=== PATIENT | male | born 1950 | race Caucasian/White ===

== ENCOUNTER 2022-07-03 21:11 | Inpatient (IN) ==
[2022-07-03] MEDS ORDERED: IOPAMIDOL 100 ML BOTTLE IV ONE (21:12)
--- NOTE | 2022-07-03 21:14 | Emergency Department Note ---
HPI General Chief complaint: Fever Stated complaint: Fever Time Seen by Provider: 07/03/22 21:13 Mode of arrival: ambulatory History of Present Illness HPI Narrative: Narrative: Patient is a 71-year-old male with a complex medical history who presents to the emergency department due to weakness, abdominal pain, fever, and burning with urination. Patient was seen earlier and found to have concern for urinary retention. He states that he since then he has been able to urinate although he is continued to have a weak stream. He states that since then he has developed a fever, some lightheadedness, lower abdominal pain without radiation, and burning with urination. He reports denies palliative or provocative factors for his abdominal pain. He denies any other concerns at this time. Patient's daughter states that she was concerned because he was breathing really fast. She denies any other concerns at this time. Related Data Home Medications Medication Instructions Recorded Confirmed cyclobenzaprine 5 mg tablet 5 mg PO QHS PRN Muscle Spasm 06/18/15 02/24/22 travoprost 0.004 % eye drops 1 drp ophthalmic (eye) QPM 06/18/15 02/24/22 aspirin 325 mg tablet 325 mg PO QDAY 06/25/15 02/24/22 pregabalin 150 mg capsule (Lyrica) 150 mg PO QHS 01/30/19 02/24/22 candesartan 16 mg tablet 16 mg PO QDAY 04/14/21 02/24/22 spironolactone 25 PO QDAY 07/04/22 Previous Rx's Medication Instructions Recorded albuterol sulfate 90 mcg/actuation 2 inh inhalation TID #1 ea 07/09/20 breath activated powder inhaler nirmatrelvir 300 mg (150 mg See Rx Instructions PO .COMPLEX 05/05/22 x2)-ritonavir 100 mg tablet,dose #30 tabs pack(EUA) (Paxlovid) levothyroxine 75 mcg tablet 75 mcg PO QDAY #90 tabs 06/11/22 tamsulosin 0.4 mg capsule (Flomax) 0.4 mg PO QDAY #30 caps 07/03/22 Allergies Allergy/AdvReac Type Severity Reaction Status Date / Time LAKESHA Inhibitors Allergy Unknown Cough Verified 07/03/22 21:14 amlodipine Allergy Unknown Swelling Verified 07/03/22 21:14 hydrocodone-acetaminophen Allergy Unknown Nausea Uncoded 02/24/22 11:23 Review of Systems ROS ROS Narrative: Narrative: Constitutional: Reports fever and weakness Eyes: Denies eye pain or vision change ENT ED: Denies throat pain, hearing loss or rhinorrhea Cardiovascular: Denies chest pain or edema Respiratory: Reports other (Fast breathing); Denies shortness of breath or cough Gastrointestinal: Reports nausea; Denies abdominal pain, vomiting, diarrhea, constipation, hematochezia or melena Genitourinary: Reports dysuria, frequency and hematuria; Denies incontinence Musculoskeletal: Denies back pain or myalgia Integumentary: Denies rash or lesions Neurological: Reports weakness (Generalized); Denies headache, numbness, confusion, abnormal gait or dizziness Endocrine: Denies fatigue or polyuria Hematological/Lymphatic: Denies easy bleeding or easy bruising PFS Narrative Patient History Narrative: Narrative: Medical/Surgical/Family History All Active Problems (Updated 07/04/22 @ 04:06 by Raudel Randall MD) Acute urinary retention (Acute) Sepsis (Acute) Acute UTI (Acute) Low back pain (Acute) Medicare annual wellness visit, subsequent (Acute) Cerumen impaction (Acute) Right hip pain (Acute) Diarrhea (Acute) Diarrhea (Acute) UTI (urinary tract infection) (Acute) Acute confusion (Acute) Hypertension, essential (Acute) Acute UTI (Acute) Need for hepatitis B screening test (Acute) Gastroesophageal reflux disease (Chronic) Hiatal hernia (Chronic) Pulmonary infiltrate (Chronic) COPD (chronic obstructive pulmonary disease) (Chronic) Hyperlipidemia (Chronic) Abnormal CT scan, bladder (Chronic) LVH (left ventricular hypertrophy) (Chronic) Lung nodules (Chronic) Elevated CK (Chronic) Obstructive Sleep Apnea-Hypopnea Syndrome (Chronic) Neck Pain (Chronic) History of esophagogastroduodenoscopy (Chronic 08/07/15) Weight loss (Chronic) Vitamin D deficiency (Chronic) Urethral stricture, traumatic (Chronic) Polycythemia (Chronic) Osteoarthritis (Chronic) Obstructive sleep apnea (Chronic) Low back pain (Chronic) Hypothyroidism (acquired) (Chronic) Hypertension, essential (Chronic) Headache (Chronic) Glaucoma (Chronic) Fatigue (Chronic) Elevated PSA (Chronic) Derangement of joint (Chronic) Degenerative disc disease (Chronic) Bradycardia (Chronic) BPH without obstruction/lower urinary tract symptoms (Chronic) Arrhythmia (Chronic) Allergic rhinitis (Chronic) Medical History Acute prostatitis Allergic rhinitis Arrhythmia over the summer 2011 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 Remote BPH without obstruction/lower urinary tract symptoms Bradycardia H/O COPD (chronic obstructive pulmonary disease) Degenerative disc disease Derangement of joint Diarrhea Diarrhea Elevated PSA H/O Fatigue Gastroesophageal reflux disease Glaucoma Headache Hiatal hernia Hypertension, essential Hypothyroidism (acquired) Low back pain Low back pain Medicare annual wellness visit, initial Medicare annual wellness visit, subsequent Nausea Obstructive sleep apnea Osteoarthritis Polycythemia Pulmonary infiltrate Urethral stricture, traumatic Vitamin D deficiency Weight loss 10 pounds Surgical History History of colonoscopy with polypectomy (06/16/17) History of esophagogastroduodenoscopy (08/07/15) Hx of appendectomy Hx of colonoscopy 04/08/07-diverticuli and hemorrhoids. 06/16/17-TA. Dr Agarwal Hx of esophagogastroduodenoscopy 03/30 dilated GERD Hx of fusion of cervical spine 01/30/12-anterior cervical disc and fusion x2 Family History mother Diabetes mellitus Essential hypertension Chronic Kidney Disease daughter Diabetes mellitus Social History Smoking Status: Never smoker Alcohol Intake Frequency: does not drink Substance Use: does not use Exam Narrative Narrative: Narrative: General General appearance: Present alert and in no apparent distress; Absent anxious, appears intoxicated or sleepy Head Head: Present atraumatic and normocephalic Eye Eye: Present PERRL, EOMI and visual kunz intact; Absent scleral icterus or nystagmus ENT ENT: Present mucous membranes moist; Absent nasal congestion Neck Neck: Present full ROM; Absent tenderness Chest Chest: Present normal inspection and symmetric chest wall rise; Absent tenderness Respiratory Respiratory: Present normal lung sounds bilaterally; Absent respiratory distress or accessory muscle use Cardiovascular Cardiovascular: Present normal rhythm, tachycardia and normal heart sounds Adbominal Abdominal: Present soft, tenderness (Suprapubic) and normal bowel sounds; Absent distention Extremities Extremities: Present normal inspection and full ROM Back Back: Present normal inspection and full ROM; Absent CVA tenderness (R) or CVA tenderness (L) Neurological Neurological: Present alert and oriented X3 Psychiatric Psychiatric: Present normal affect and normal mood Skin Skin: Present warm (WNL), dry and normal color Course Vital Signs Vital signs: Vital Signs Temperature 99 F 07/03/22 21:11 Pulse Rate 100 H 07/03/22 21:11 Respiratory Rate 33 H 07/03/22 21:11 Blood Pressure 149/82 07/03/22 21:11 Pulse Oximetry (%) 96 07/03/22 21:11 Oxygen Delivery Method 07/03/22 21:11 Temperature 100.9 F H 07/04/22 02:47 Pulse Rate 93 H 07/04/22 02:47 Respiratory Rate 30 H 07/04/22 02:47 Blood Pressure 132/80 07/04/22 02:47 Pulse Oximetry (%) 95 07/04/22 02:47 Oxygen Delivery Method 07/04/22 02:47 MDM MDM Narrative Medical decision making narrative: Narrative: Patient is a 71-year-old male who presents to the emergency department due to fever, weakness, tachypnea, abdominal pain, and burning with urination. Given patient's symptoms and recent cystoscopy by Dr. Kruger there is concern for angelica dder infection. Differential also includes diverticulitis, colitis, appendicitis, COVID, and influenza. Patient's labs are significant for an elevated white blood cell count, urinalysis with greater than 182 RBCs, greater than 182 WBCs, and leukocyte esterase. Patient CT scan is consistent with cystitis. Given patient's tachycardia, tachypnea, elevated white blood cell count, and concern for c ystitis patient has been given fluids and antibiotics. I have spoken to Dr. Brewer who has agreed with admission for this patient. We have placed admission orders. Lab Data Result diagrams: 07/03/22 22:30 Labs: Lab Results 07/03/22 07/03/22 07/03/22 Range/Units 22:15 22:30 22:30 WBC 12.5 H (4.5-11.0) K/mcL RBC 4.77 (4.63-6.08) M/mcL Hgb 15.3 (13.7-17.5) g/dL Hct 43.3 (40.1-51.0) % POC Hct (41-55) MCV 90.8 (80.0-100.0) fL MCH 32.1 (26.0-34.0) pg MCHC 35.3 (31.0-36.0) g/dL RDW 13.8 (11.5-14.5) % Plt Count 151 (140-440) K/mcL MPV 11.1 (8.8-12.5) fL Immature Gran % (Auto) 0.4 (0.0-0.5) % Neut % (Auto) 81.5 H (38.0-78.0) % Lymph % (Auto) 5.0 L (15.5-49.0) % Owen % (Auto) 13.1 H (1.0-12.0) % Eos % (Auto) 0 (0.0-7.0) % Baso % (Auto) 0 (0.0-2.0) % Lymph # (Auto) 0.63 L (1.50-4.80) K/mcL Owen # (Auto) 1.64 H (0.10-0.90) K/mcL Eos # (Auto) 0 (0.00-0.70) K/mcL Baso # (Auto) 0 (0.00-0.30) K/mcL Immature Gran # 0.05 (0.00-0.05) K/mcl Absolute Neutrophils 10.20 H (1.80-8.00) K/mcL POC VBG pH (7.32-7.42) POC VBG pCO2 at Temp (41-51) POC VBG pO2 (25-40) POC VBG HCO3 (24-28) POC VBG Total CO2 (25-29) POC Venous O2 Sat (40-70) POC VBG Base Excess (-2-2) VBG Lactic Acid (0.5-2) POC Sodium (133-145) POC Potassium (3.3-5.1) POC Chloride (96-108) POC Total CO2 (22-30) POC BUN (6-20) POC Creatinine (0.6-1.2) POC Glucose (70-105) POC WB Ioniz Calcium (1.16-1.32) Total Bilirubin 1.0 (0.1-1.0) mg/dL Direct Bilirubin 0.2 (<0.3) mg/dL AST 22 (<40) U/L ALT 22 (<40) U/L Alkaline Phosphatase 57 (39-117) U/L Total Protein 7.3 (5.9-8.4) gm/dL Albumin 4.2 (3.2-5.2) gm/dL Globulin 3.1 (2.2-3.7) gm/dL Lipase 18 (7-60) U/L Procalcitonin (<0.10) ng/mL Urine Color Brown Urine Appearance Cloudy A (Clear) Urine pH 6.0 (5.0-9.0) Ur Specific Mil[place]ay 1.013 (1.000-1.035) Urine Protein 30 A (Negative) mg/dL Urine Glucose (UA) Negative (Negative) mg/dL Urine Ketones 5 A (Negative) mg/dL Urine Occult Blood >=1.0 A (Negative) mg/dL Urine Nitrate Negative (Negative) Urine Bilirubin Negative (Negative) mg/dL Urine Urobilinogen Negative mg/dL Ur Leukocyte Esterase 250 A (Negative) /uL Urine RBC > 182 H (0-1) /hpf Urine WBC > 182 H (0-4) /hpf Ur Squamous Epith Cells 0 (0-4) /hpf Urine Bacteria None (0) /hpf Urine Mucus Few A (None) /hpf Ur Culture Indicated? yes 07/03/22 07/03/22 07/03/22 Range/Units 22:30 22:40 22:46 WBC (4.5-11.0) K/mcL RBC (4.63-6.08) M/mcL Hgb (13.7-17.5) g/dL Hct (40.1-51.0) % POC Hct 44.0 (41-55) MCV (80.0-100.0) fL MCH (26.0-34.0) pg MCHC (31.0-36.0) g/dL RDW (11.5-14.5) % Plt Count (140-440) K/mcL MPV (8.8-12.5) fL Immature Gran % (Auto) (0.0-0.5) % Neut % (Auto) (38.0-78.0) % Lymph % (Auto) (15.5-49.0) % Owen % (Auto) (1.0-12.0) % Eos % (Auto) (0.0-7.0) % Baso % (Auto) (0.0-2.0) % Lymph # (Auto) (1.50-4.80) K/mcL Owen # (Auto) (0.10-0.90) K/mcL Eos # (Auto) (0.00-0.70) K/mcL Baso # (Auto) (0.00-0.30) K/mcL Immature Gran # (0.00-0.05) K/mcl Absolute Neutrophils (1.80-8.00) K/mcL POC VBG pH 7.50 H (7.32-7.42) POC VBG pCO2 at Temp 29.9 L (41-51) POC VBG pO2 51 H (25-40) POC VBG HCO3 23.1 L (24-28) POC VBG Total CO2 24.0 L (25-29) POC Venous O2 Sat 89.0 H (40-70) POC VBG Base Excess 0 (-2-2) VBG Lactic Acid 1.3 (0.5-2) POC Sodium 134 (133-145) POC Potassium 4.2 (3.3-5.1) POC Chloride 101 (96-108) POC Total CO2 22.0 (22-30) POC BUN 28 H (6-20) POC Creatinine 1.7 H (0.6-1.2) POC Glucose 135 H (70-105) POC WB Ioniz Calcium 1.07 L (1.16-1.32) Total Bilirubin (0.1-1.0) mg/dL Direct Bilirubin (<0.3) mg/dL AST (<40) U/L ALT (<40) U/L Alkaline Phosphatase (39-117) U/L Total Protein (5.9-8.4) gm/dL Albumin (3.2-5.2) gm/dL Globulin (2.2-3.7) gm/dL Lipase (7-60) U/L Procalcitonin 0.27 H (<0.10) ng/mL Urine Color Urine Appearance (Clear) Urine pH (5.0-9.0) Ur Specific Milfay (1.000-1.035) Urine Protein (Negative) mg/dL Urine Glucose (UA) (Negative) mg/dL Urine Ketones (Negative) mg/dL Urine Occult Blood (Negative) mg/dL Urine Nitrate (Negative) Urine Bilirubin (Negative) mg/dL Urine Urobilinogen mg/dL Ur Leukocyte Esterase (Negative) /uL Urine RBC (0-1) /hpf Urine WBC (0-4) /hpf Ur Squamous Epith Cells (0-4) /hpf Urine Bacteria (0) /hpf Urine Mucus (None) /hpf Ur Culture Indicated? ED POC Tests ED POC Tests: ERIK - Influenza A Negative ERIK - Influenza B Negative ERIK - SARS Antigen Negative Discharge Plan Patient/Caregiver Discharge Instructions Pt seen by [facility] [employer] [facility]/PA only: No Clinical Impression: Sepsis, Acute UTI Patient Disposition: Xfer As Inpt ([facility]) Discharge Date/Time: 07/04/22 02:47 Discharge Comment: on 250
[2022-07-03] MEDS ORDERED: PIPERACILLIN SODIUM/TAZOBACTAM 4.5 GM in DEXTROSE 5% IN WATER 50 ML IV ONE (22:32)
[2022-07-03 22:50] LABS: POC Calcium, Ionized 1.07 (1.16-1.32); POC Creatinine 1.7 (0.6-1.2); POC Potassium 4.2 (3.3-5.1)
[2022-07-03 23:05] LABS: Appearance,Urine Cloudy (Clear); Bilirubin,Urine Negative (Negative); Color,Urine Brown; Culture Indicated,Urine yes; Glucose,Urine (UA) Negative (Negative); Ketones,Urine 5 mg/dL (Negative); Leukocyte Esterase,Urine 250 /uL (Negative); Mucus,Urine FEW /hpf; Nitrate,Urine Negative (Negative); Protein,Urine 30 mg/dL (Negative); Specific Gravity,Urine 1.013 (1.000-1.035); Urine Blood >=1.0 mg/dL (Negative); Urine RBC > 182 /hpf (0-1); Urine Squamous Epithelial Cell 0 /hpf (0-4); Urine WBC > 182 /hpf (0-4); Urobilinogen,Urine Negative
[2022-07-03 23:09] LABS: Basophils # (Auto) 0 K/mcL (0.00-0.30); Basophils % (Auto) 0 % (0.0-2.0); Eosinophils # (Auto) 0 K/mcL (0.00-0.70); Eosinophils % (Auto) 0 % (0.0-7.0); Hematocrit 43.3 % (40.1-51.0); Hemoglobin 15.3 g/dL (13.7-17.5); Lymphocytes # (Auto) 0.63 K/mcL (1.50-4.80); Mean Cell Volume 90.8 fL (80.0-100.0); Mean Corpuscular HGB Conc 35.3 g/dL (31.0-36.0); Mean Platelet Volume 11.1 fL (8.8-12.5); Monocytes # (Auto) 1.64 K/mcL (0.10-0.90); Monocytes % (Auto) 13.1 % (1.0-12.0); Neutrophils % (Auto) 81.5 % (38.0-78.0); Platelet Count 151 K/mcL (140-440); RBC 4.77 M/mcL (4.63-6.08); Red Cell Distribution Width 13.8 % (11.5-14.5); WBC 12.5 K/mcL (4.5-11.0)
[2022-07-03 23:26] LABS: Albumin 4.2 gm/dL (3.2-5.2); Bilirubin,Direct 0.2 mg/dL (<0.3); Globulin 3.1 gm/dL (2.2-3.7)
[2022-07-03] MEDS ORDERED: 0.9 % SODIUM CHLORIDE 1,000 ML IV ONE (23:52)
[2022-07-04] MEDS ORDERED: ACETAMINOPHEN 325 MG TABLET PO PRN (01:49)
[2022-07-04] MEDS ORDERED: ONDANSETRON 4 MG/2 ML VIAL IV PRN ×2 (01:49→09:04)
[2022-07-04] MEDS ORDERED: hydrOXYzine 25 MG TABLET PO ONE (02:01)
[2022-07-04] MEDS: LACTATED RINGERS 1,000 ML IV SCH ×5 (03:01→21:06)
--- NOTE | 2022-07-04 05:41 | XRay Report ---
CLINICAL INFORMATION: Cough and fever COMPARISON: None. TECHNIQUE: Portable FINDINGS: The heart size, mediastinum and pulmonary vessels are unremarkable. The lungs are clear. There are no effusions. The bones and soft tissues are within normal limits. IMPRESSION: Normal chest. Interpreted and Authenticated by: Jasson Campos 07/04/22
--- NOTE | 2022-07-04 07:30 | Cat Scan Report ---
CLINICAL INFORMATION: Fever and hematuria. COMPARISON: Abdomen and pelvic CT 12/31/2017 TECHNIQUE: Following enteric contrast, 80 cc of Isovue-[id number] were injected intravenously, and 60 seconds later, 0.625 mm helical slices were obtained from the mid heart through the subtrochanteric regions. Following reconstruction, 2.5 mm sagittal, coronal and axial reformatted images were processed and reviewed at bone, lung and soft tissue windows. Five minutes later, 0.625 mm helical slices were obtained from the mid heart through the kidneys and viewed at soft tissue windows.The exam was performed using radiation dose optimization techniques including, but not limited to, automated exposure control, adjustment of the mA and/or kV according to patient size and use of iterative reconstruction technique. FINDINGS: The lung bases shows scattered fibrosis and atelectasis. Two pleural-based nodules are unchanged from 2018 CT: 9 mm lateral basilar segment right lower lobe on image 10 and 6 mm and the superior segment left lower lobe on image five. No effusions. The visualized heart is mildly enlarged with moderate calcific plaque in the coronary arteries. Abdominal images show scattered small simple cysts throughout the liver which are stable. No new hepatic abnormality. The gallbladder is surgically absent. Common bile duct is normal caliber: 6 mm. The pancreas, both adrenal glands are normal in size, configuration and attenuation. Spleen is moderately enlarged with a vertical dimension of 15 cm. There is increased from the 2012 CT-13 cm. The abdominal aorta is normal diameter contains scattered atherotic plaque. No stenoses within the aortic branches. No free air, free fluid or adenopathy. Both kidneys are normal and symmetric in size, position, configuration and attenuation: the right is 10 cm in length and the left is 7 cm in length. Scattered simple cysts on both kidneys are stable. There are no solid lesions or stones. Upper collecting systems and ureters are normal. Pelvic images show mild urinary bladder distention. Scattered diverticuli ejects from the urinary bladder base. The largest is a 5 cm broad mouth diverticulum projecting from the posterior base. This demonstrates moderate wall thickening. A 1 cm diverticuli in the right base, adjacent to the UVJ, contains 3-4 small stones. Prostate is normal size 5.5 cm. Scattered diverticuli present within the sigmoid colon, but no evidence of diverticulitis. The remaining colon, small bowel and stomach are grossly normal. Appendix region is unremarkable. Bone windows show only degeneration in the lumbar spine. IMPRESSION: Mild urinary bladder distention with diffuse wall thickening suggesting cystitis. In addition, there is a 5 cm broad mouth diverticula of the posterior wall which has asymmetric wall thickening. Scattered other diverticula projects the urinary bladder base. There are 3-4 stones within a smaller diverticulum. Suspect cause for hematuria and fever is due to cystitis. Consider cystoscopy. Both kidneys show only scattered simple cysts which are stable. No significant abnormality. Mild splenomegaly that slight increase A few simple cysts in the kidneys-stable. Bilateral lung nodules stable since 2018. This should be considered benign granulomas Interpreted and Authenticated by: Jasson Campos 07/04/22
[2022-07-04] MEDS ORDERED: cefTRIAXone 2 GM in DEXTROSE 5% IN WATER 50 ML IV SCH (09:00)
--- NOTE | 2022-07-04 09:00 | Internal Med History&Physical ---
HPI History of Present Illness Patient information: Note initiated : 07/04/22 at 8:58 am Service Date, if different from initiated Date: [] Patient: Jessica Casarez 71 y/o M admitted on 07/04/22 for Fever. Chief Complaint: [General body weakness, fever, abdominal pain, dysuria] Chief complaint: General body weakness, fever, abdominal pain, dysuria History of present illness: Mr. Casarez is a 71 year old M history of CHF, BPH, essential hypertensions, hypothyroidism, presenting with 5-day history of general body weakness, subjective fever, abdominal pain, dysuria. He had a cystoscopy done by his own urologist Dr. Kruger last and he is complaining of general body weakness, subjective fever, abdominal pain, and dysuria since the procedure. He denies any nausea or vomiting. He is complaining of difficulty urinating but it has been a chronic problem for him. Due to the persistence nature of his symptoms, he decided to came to our ED last night for evaluation and treatments. Vital signs significant for tachycardia tachypnea and fever with T-max 38.3. Labs significant for leukocytosis with WBC of 12.5. Lactic acid 1.3. Procalcitonin 0.27. UA suggesting the presence of urinary tract infections. CT of the abdomen pelvis also suggesting the presence of cystitis. It also shows a 5 cm border mouth diverticula of the posterior bladder wall s 3 to 4 stones within diverticulum. CXR unremarkable. Constitutional Constitutional: Present fever(s) and weakness; Absent chills, excessive sweating or fatigue EENT Eyes: Absent blurry vision, change in vision, loss of vision or other visual disturbances Ears: Absent decreased hearing or tinnitus Nose, mouth and throat: Absent abnormal hearing, dry mouth, headache(s), nasal congestion or sore throat Cardiovascular Cardiovascular: Absent chest pain, chest pain at rest, edema, irregular heart rhythm or palpatations Respiratory Respiratory: Absent cough, dyspnea or wheezing Gastrointestinal Gastrointestinal: Present abdominal pain; Absent constipation, diarrhea, nausea or vomiting Genitourinary Genitourinary: as per HPI, change in urinary stream, difficulty urinating and dysuria Musculoskeletal Musculoskeletal: Absent back pain, deformity, limited range of motion, muscle cramps, muscle weakness or numbness Integumentary Integumentary: Absent lesions, rash or wounds Neurological Neurological: Absent focal weakness, headache(s) or numbness Psychiatric Psychiatric: Absent anxiety, depression or hallucinations PFSH PFSH All Active Problems (Updated 07/04/22 @ 09:06 by Drake Brewer MD) Stage 1 acute kidney injury (Acute) CHF (congestive heart failure) (Acute) BPH (benign prostatic hyperplasia) (Acute) Acute urinary retention (Acute) Sepsis (Acute) Acute UTI (Acute) Low back pain (Acute) Medicare annual wellness visit, subsequent (Acute) Cerumen impaction (Acute) Right hip pain (Acute) Diarrhea (Acute) Diarrhea (Acute) UTI (urinary tract infection) (Acute) Acute confusion (Acute) Hypertension, essential (Acute) Acute UTI (Acute) Need for hepatitis B screening test (Acute) Gastroesophageal reflux disease (Chronic) Hiatal hernia (Chronic) Pulmonary infiltrate (Chronic) COPD (chronic obstructive pulmonary disease) (Chronic) Hyperlipidemia (Chronic) Abnormal CT scan, bladder (Chronic) LVH (left ventricular hypertrophy) (Chronic) Lung nodules (Chronic) Elevated CK (Chronic) Obstructive Sleep Apnea-Hypopnea Syndrome (Chronic) Neck Pain (Chronic) History of esophagogastroduodenoscopy (Chronic 08/07/15) Weight loss (Chronic) Vitamin D deficiency (Chronic) Urethral stricture, traumatic (Chronic) Polycythemia (Chronic) Osteoarthritis (Chronic) Obstructive sleep apnea (Chronic) Low back pain (Chronic) Hypothyroidism (acquired) (Chronic) Hypertension, essential (Chronic) Headache (Chronic) Glaucoma (Chronic) Fatigue (Chronic) Elevated PSA (Chronic) Derangement of joint (Chronic) Degenerative disc disease (Chronic) Bradycardia (Chronic) BPH without obstruction/lower urinary tract symptoms (Chronic) Arrhythmia (Chronic) Allergic rhinitis (Chronic) Medical History Acute prostatitis Allergic rhinitis Arrhythmia over the summer 2011 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 Remote BPH without obstruction/lower urinary tract symptoms Bradycardia H/O COPD (chronic obstructive pulmonary disease) Degenerative disc disease Derangement of joint Diarrhea Diarrhea Elevated PSA H/O Fatigue Gastroesophageal reflux disease Glaucoma Headache Hiatal hernia Hypertension, essential Hypothyroidism (acquired) Low back pain Low back pain Medicare annual wellness visit, initial Medicare annual wellness visit, subsequent Nausea Obstructive sleep apnea Osteoarthritis Polycythemia Pulmonary infiltrate Urethral stricture, traumatic Vitamin D deficiency Weight loss 10 pounds Surgical History History of colonoscopy with polypectomy (06/16/17) History of esophagogastroduodenoscopy (08/07/15) Hx of appendectomy Hx of colonoscopy 04/08/07-diverticuli and hemorrhoids. 06/16/17-TA. 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 well-balanced diet: daily or most days eating out: rarely or never during the past year weight has: remained stable physical activity: none smoking status: Never smoker alcohol intake frequency: does not drink substance use type: does not use eric/voodoo: Other MEDS/ALLERGIES Home Medications and Allergies Home Medications Medication Instructions Recorded Confirmed Type cyclobenzaprine 5 mg tablet 5 mg PO QHS PRN Muscle Spasm 06/18/15 02/24/22 History travoprost 0.004 % eye drops 1 drp ophthalmic (eye) QPM 06/18/15 02/24/22 History aspirin 325 mg tablet 325 mg PO QDAY 06/25/15 02/24/22 History pregabalin 150 mg capsule (Lyrica) 150 mg PO QHS 01/30/19 02/24/22 History albuterol sulfate 90 mcg/actuation 2 inh inhalation TID #1 ea 07/09/20 02/24/22 Rx breath activated powder inhaler candesartan 16 mg tablet 16 mg PO QDAY 04/14/21 02/24/22 History nirmatrelvir 300 mg (150 mg See Rx Instructions PO .COMPLEX 05/05/22 Rx x2)-ritonavir 100 mg tablet,dose #30 tabs pack(EUA) (Paxlovid) levothyroxine 75 mcg tablet 75 mcg PO QDAY #90 tabs 06/11/22 Rx tamsulosin 0.4 mg capsule (Flomax) 0.4 mg PO QDAY #30 caps 07/03/22 Rx spironolactone 25 PO QDAY 07/04/22 History Allergies Allergy/AdvReac Type Severity Reaction Status Date / Time LAKESHA Inhibitors Allergy Unknown Cough Verified 07/03/22 21:14 amlodipine Allergy Unknown Swelling Verified 07/03/22 21:14 hydrocodone-acetaminophen Allergy Unknown Nausea Uncoded 02/24/22 11:23 EXAM Constitutional Vitals: Temp Pulse Resp BP Pulse Ox O2 Del Method 38.1 C H 86 16 159/90 94 07/04/22 07:25 07/04/22 07:25 07/04/22 07:25 07/04/22 07:25 07/04/22 07:25 07/04/22 07:25 General appearance: cooperative and no acute distress Head Head exam: Present atraumatic and normocephalic Eye Eye exam: Present EOMI and PERRL ENT ENT exam: Present mucous membranes moist, normal exam and normal external ear exam Neck Neck exam: Present normal inspection; Absent lymphadenopathy, tenderness or thyromegaly Respiratory Respiratory exam: Absent accessory muscle use, respiratory distress or wheezes Cardiovascular Cardiovascular exam: Present normal rate and rhythm and systolic murmur; Absent JVD GI/Abdominal GI/Abdominal exam: Present normal bowel sounds and soft; Absent organomegaly or tenderness Rectal Rectal exam: Present deferred Extremities Exam Extremities exam: Present full ROM, normal capillary refill and normal inspection; Absent tenderness Neurological Exam Neurological exam: Present alert, CN II-XII intact and oriented X3; Absent motor sensory deficit Psychiatric Psychiatric exam: Present normal affect and normal mood; Absent anxious or depressed Skin Skin exam: Present dry and intact DATA Data Completed and Pending Labs: Labs from last 24 hours 07/03/22 07/03/22 07/03/22 22:46 22:40 22:30 WBC RBC Hgb Hct POC Hct 44.0 MCV MCH MCHC RDW Plt Count MPV Immature Gran % (Auto) Neut % (Auto) Lymph % (Auto) [place] % (Auto) Eos % (Auto) Baso % (Auto) Lymph # (Auto) [place] # (Auto) Eos # (Auto) Baso # (Auto) Immature Gran # Absolute Neutrophils POC VBG pH 7.50 H POC VBG pCO2 at Temp 29.9 L POC VBG pO2 51 H POC VBG HCO3 23.1 L POC VBG Total CO2 24.0 L POC Venous O2 Sat 89.0 H POC VBG Base Excess 0 VBG Lactic Acid 1.3 POC Sodium 134 POC Potassium 4.2 POC Chloride 101 POC Total CO2 22.0 POC BUN 28 H POC Creatinine 1.7 H POC Glucose 135 H POC WB Ioniz Calcium 1.07 L Total Bilirubin Direct Bilirubin AST ALT Alkaline Phosphatase Total Protein Albumin Globulin Lipase Procalcitonin 0.27 H Urine Color Urine Appearance Urine pH Ur Specific [place] Urine Protein Urine Glucose (UA) Urine Ketones Urine Occult Blood Urine Nitrate Urine Bilirubin Urine Urobilinogen Ur Leukocyte Esterase Urine RBC Urine WBC Ur Squamous Epith Cells Urine Bacteria Urine Mucus Ur Culture Indicated? 07/03/22 07/03/22 07/03/22 22:30 22:30 22:15 WBC 12.5 H RBC 4.77 Hgb 15.3 Hct 43.3 POC Hct MCV 90.8 MCH 32.1 MCHC 35.3 RDW 13.8 Plt Count 151 MPV 11.1 Immature Gran % (Auto) 0.4 Neut % (Auto) 81.5 H Lymph % (Auto) 5.0 L [place] % (Auto) 13.1 H Eos % (Auto) 0 Baso % (Auto) 0 Lymph # (Auto) 0.63 L [place] # (Auto) 1.64 H Eos # (Auto) 0 Baso # (Auto) 0 Immature Gran # 0.05 Absolute Neutrophils 10.20 H POC VBG pH POC VBG pCO2 at Temp POC VBG pO2 POC VBG HCO3 POC VBG Total CO2 POC Venous O2 Sat POC VBG Base Excess VBG Lactic Acid POC Sodium POC Potassium POC Chloride POC Total CO2 POC BUN POC Creatinine POC Glucose POC WB Ioniz Calcium Total Bilirubin 1.0 Direct Bilirubin 0.2 AST 22 ALT 22 Alkaline Phosphatase 57 Total Protein 7.3 Albumin 4.2 Globulin 3.1 Lipase 18 Procalcitonin Urine Color Brown Urine Appearance Cloudy A Urine pH 6.0 Ur Specific [place] 1.013 Urine Protein 30 A Urine Glucose (UA) Negative Urine Ketones 5 A Urine Occult Blood >=1.0 A Urine Nitrate Negative Urine Bilirubin Negative Urine Urobilinogen Negative Ur Leukocyte Esterase 250 A Urine RBC > 182 H Urine WBC > 182 H Ur Squamous Epith Cells 0 Urine Bacteria None Urine Mucus Few A Ur Culture Indicated? yes A/P Assessment and plan (1) Acute UTI: Status: Acute (2) Sepsis: Status: Acute (3) Hypothyroidism (acquired): Status: Chronic (4) Hypertension, essential: Status: Chronic (5) BPH (benign prostatic hyperplasia): Status: Acute (6) CHF (congestive heart failure): Status: Acute (7) Stage 1 acute kidney injury: Status: Acute Narrative A/P Narrative: Assessment and Plans: 1. UTI with sepsis: Inpatient med surg s/p IV fluid bolus given in the ED, to be followed by LR@100cc/hr Serial lactic acid Procalcitonin Blood culture Urine culture cbc w/ auto diff in the morning to trend WBC Rocephin Physical therapy 2. BPH: Continue Flomax 3. Stage 1 acute kidney injury: Avoid nephrotoxic agents s/p IV fluid bolus given in the ED, to be followed by LR@100cc/hr CMP in the morning to trend kidney functions 4. h/o CHF: s/p IV fluid bolus given in the ED, to be followed by LR@100cc/hr Continue to monitor 5. Hypothyroidism: Continue thyroid replacement therapy 6. Essential HTN: Holding Aldactone and Candesartan for now GI ppx: not currently indicated DVT ppx: Heparin Code status: Full Prognosis: guarded Disposition: inpatient med surg Time Spent With Patient Time: Total time spent is greater than 50% in coordination of care (as documented) at patient's floor/unit and/or counseling patient: QUALITY VTE Deep Vein Thrombosis/Pulmonary Embolism Present on Admission: No
[2022-07-04] MEDS ORDERED: IPRATROPIUM/ALBUTEROL 3 ML AMPUL.NEB NEB PRN (09:04)
[2022-07-04] MEDS ORDERED: morphine 4 MG/ML VIAL IV PRN (09:04)
[2022-07-04] MEDS: DOCUSATE SODIUM 100 MG CAPSULE PO SCH ×2 (09:43→21:01)
[2022-07-04] MEDS: HEPARIN 5,000 UNIT/ML VIAL SQ SCH ×2 (09:43→21:05)
--- NOTE | 2022-07-04 09:58 | EKG ---
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
--- NOTE | 2022-07-04 12:16 | Internal Med Progress Note ---
SUBJECTIVE Subjective Patient information: Note initiated : 07/04/22 at 12:12 pm Service Date, if different from initiated Date: [] Patient: Jessica Casarez 71 y/o M admitted on 07/04/22 for Fever. Chief Complaint: [] Interval history: Mr. Casarez is a 71 year old M history of CHF, BPH, essential hypertensions, hypothyroidism, presenting with 5-day history of general body weakness, subjective fever, abdominal pain, dysuria. He had a cystoscopy done by his own urologist Dr. Kruger last 07/02/2022 and presented to the ED complaining of ge neral body weakness, subjective fever, abdominal pain, and dysuria since the procedure. He denied any nausea or vomiting. He complaining of difficulty urinating but it has been a chronic problem for him. Due to the persistence nature of his symptoms, he decided to came to our ED last night for evaluation and treatments. Vital signs significant for tachycardia tachypnea and fever with T-max 38.3. Labs significant for leukocytosis with WBC of 12.5. Lactic acid 1.3. Procalcitonin 0.27. UA suggesting the presence of urinary tract infections. CT of the abdomen pelvis also suggesting the presence of cystitis. It also shows a 5 cm border mouth diverticula of the posterior bladder wall s 3 to 4 stones within diverticulum. CXR unremarkable. 07/05 Patient had high-grade temperatures overnight, yesterday afternoon had a fever of 100.9. Leukocytosis resolved, afebrile. Yesterday evening the patient was transitioned to cefepime due to higher risk of a resistant bacteria given recent cystoscopy.b Urine culture pending, preliminary blood culture showing no growth to date. Creatinine about the same as yesterday, making urine. Discontinued IV fluid. Physical exam Head: Atraumatic, normal inspection. Eyes: normal appearance, no scleral icterus. Neck: full ROM Respiratory: no respiratory distress. Cardiovascular: normal rate and rhythm, S1, S2. GI/Abdominal: soft, nontender, no guarding. Extremities: full range of motion, nontender. Neurological: CN II-XII intact, intact motor, intact sensation. Psychiatric: normal mood. Skin: warm, normal color Constitutional Vitals: Vital Signs Temp Pulse Resp BP Pulse Ox O2 Del Method 98.6 F 96 H 16 98/78 96 07/04/22 11:23 10/15/22 11:23 07/04/22 11:23 07/04/22 11:23 07/04/22 11:23 07/04/22 11:23 Period Temp Pulse Resp BP Sys/Campbell Pulse Ox O2 Del Method O2 Flow Rate Last 24 Hr 98.6 F-100.9 F 86-102 16-40 98-159/65-90 90-96 Room Air-Room Air Intake and Output 07/03/22 07/04/22 07/04/22 21:59 05:59 13:59 Intake Total 1050 1290 Output Total 625 325 Balance 425 965 Weight 104.326 kg 103.555 kg Intake & Output: Intake & Output 07/03/22 07/04/22 07/04/22 21:59 05:59 13:59 Intake Total 1050 1290 Output Total 625 325 Balance 425 965 Weight 104.326 kg 103.555 kg Intake: IV 1050 1050 Sodium Chloride 0.9% 1,000 ml @ 1000 Wide Open IV BOLUS ONE Rx#: [id number] Lactated Ringers 1,000 ml @ 150 1000 mls/hr IV .[id number] [facility] Rx#: [id number] Zosyn 4.5 gm In Dextrose 5% in 50 Water 50 ml @ 100 mls/hr IV ONCE ONE Rx#:[id number] Rocephin 2 gm In Dextrose 5% in 50 Water 50 ml @ 100 mls/hr IV Q24H [facility] Rx#:[id number] Oral 240 Output: Void Amount 625 325 Other: Meal Breakfast Percent of Meal Consumed 75% Feeding Ability Independent Urine Appearance Clear Urine Color Brown Dark Yellow Urine Odor Foul Strong OBJ DATA Labs CBC & Chem 7: 07/05/22 05:26 07/05/22 05:26 Labs: Abnormal Lab Results 07/03/22 07/03/22 07/03/22 22:46 22:40 22:30 WBC Neut % (Auto) Lymph % (Auto) [place] % (Auto) Lymph # (Auto) [place] # (Auto) Absolute Neutrophils POC VBG pH 7.50 H POC VBG pCO2 at Temp 29.9 L POC VBG pO2 51 H POC VBG HCO3 23.1 L POC VBG Total CO2 24.0 L POC Venous O2 Sat 89.0 H POC BUN 28 H POC Creatinine 1.7 H POC Glucose 135 H POC WB Ioniz Calcium 1.07 L Procalcitonin 0.27 H Urine Appearance Urine Protein Urine Ketones Urine Occult Blood Ur Leukocyte Esterase Urine RBC Urine WBC Urine Mucus 07/03/22 07/03/22 22:30 22:15 WBC 12.5 H Neut % (Auto) 81.5 H Lymph % (Auto) 5.0 L [place] % (Auto) 13.1 H Lymph # (Auto) 0.63 L [place] # (Auto) 1.64 H Absolute Neutrophils 10.20 H POC VBG pH POC VBG pCO2 at Temp POC VBG pO2 POC VBG HCO3 POC VBG Total CO2 POC Venous O2 Sat POC BUN POC Creatinine POC Glucose POC WB Ioniz Calcium Procalcitonin Urine Appearance Cloudy A Urine Protein 30 A Urine Ketones 5 A Urine Occult Blood >=1.0 A Ur Leukocyte Esterase 250 A Urine RBC > 182 H Urine WBC > 182 H Urine Mucus Few A Meds: Medications Acetaminophen (Acetaminophen 325 Mg Tablet) 650 mg PO Q6HP PRN; Protocol PRN Reason: Per Pain Protocol/Fever > 101 Albuterol/Ipratropium (Ipratropium/Albuterol 3 Ml Ampul.Neb) 3 ml NEB Q4HRT PRN PRN Reason: Wheezing Docusate Sodium (Docusate Sodium 100 Mg Capsule) 100 mg PO BID [facility] Last Admin: 07/04/22 09:43 Dose: 100 mg Heparin Sodium (Porcine) (Heparin 5,000 Unit/Ml Vial) 5,000 unit SQ Q12 [facility] Last Admin: 07/04/22 09:43 Dose: 5,000 unit Lactated Ringer's (Lactated Ringers) 1,000 mls @ 100 mls/hr IV .Q10H [facility] Last Admin: 07/04/22 09:10 Dose: 100 mls/hr Ceftriaxone Sodium 2 gm/ (Dextrose) 50 mls @ 100 mls/hr IV Q24H [facility] Last Infusion: 07/04/22 10:13 Dose: Infused Morphine Sulfate (Morphine 4 Mg/Ml Vial) 2 mg IV Q4HP PRN; Protocol PRN Reason: Per Pain Protocol Ondansetron HCl (Ondansetron 4 Mg/2 Ml Vial) 4 mg IV Q4HP PRN; Protocol PRN Reason: Nausea And Vomiting Ondansetron HCl (Ondansetron 4 Mg/2 Ml Vial) 4 mg IV Q6HP PRN PRN Reason: Nausea And Vomiting Oxycodone HCl (Oxycodone Hcl 5 Mg Tablet) 5 mg PO Q4HP PRN; Protocol PRN Reason: Per Pain Protocol Senna (Sennosides 1 Tablet) 2 tab PO HS MARSHAL Sodium Chloride (0.9 % Sodium Chloride 10 Ml Syringe) 10 ml IV Q8 [place]SH[place] A/P Narrative A/P Narrative: 71-year-old male with a history of hypertension, hypothyroidism, congestive heart failure, BPH admitted for severe sepsis secondary to a UTI following a recent cystoscopy. Sepsis was complicated by an acute kidney injury. #Severe sepsis probably secondary to UTI following recent cystoscopy #Acute kidney injury secondary to sepsis, improving #History of a heart failure, unspecified #Essential hypertension #Hypothyroidism #Bladder stones #Bladder diverticula Plan -Cefepime IV pending urine culture results. -Discontinue IV fluid. -Follow CBC with differential, urine and blood cultures. -Monitor renal function, electrolytes. -Holding home candesartan and spironolactone for now for WILIAN -Continue home aspirin, levothyroxine, Lyrica, Flomax, Travatan eyedrops, [place]er [place] as needed. -Regular diet. -DVT prophylaxis: Heparin SQ. 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
[2022-07-04 13:56] LABS: ALT/SGPT 24 U/L (<40); AST/SGOT 25 U/L (<40); Albumin 4.3 gm/dL (3.2-5.2); Albumin/Globulin Ratio 1.5 (1.0-2.3); Alkaline Phosphatase 62 U/L (39-117); Bilirubin,Direct 0.2 mg/dL (<0.3); Bilirubin,Total 0.7 mg/dL (0.1-1.0); Blood Urea Nitrogen 20 mg/dL (8-23); Calcium 8.5 mg/dL (8.6-10.4); Carbon Dioxide 25 mmol/L (22-30); Chloride 97 mmol/L (96-108); Globulin 2.8 gm/dL (2.2-3.7); Glomerular Filtration Rate 49; Glucose 135 mg/dL (70-105); Lactate Dehydrogenase 283 U/L (135-225); Phosphorous 1.9 mg/dL (2.5-4.5); Triglycerides 90 mg/dL (<150); Uric Acid 7.4 mg/dL (2.5-8.0)
[2022-07-04] MEDS: 0.9 % SODIUM CHLORIDE 10 ML SYRINGE IV SCH ×2 (14:01→21:06)
[2022-07-04] MEDS: CEFEPIME 2 GM VIAL IV SCH ×2 (14:19→22:19)
[2022-07-04] MEDS: SENNOSIDES 1 TABLET PO SCH (21:01)
[2022-07-04] MEDS: oxyCODONE HCL 5 MG TABLET PO PRN (22:23)
[2022-07-05] MEDS: oxyCODONE HCL 5 MG TABLET PO PRN ×3 (02:04→20:27)
[2022-07-05] MEDS: LACTATED RINGERS 1,000 ML IV SCH ×2 (04:06→06:20)
[2022-07-05] MEDS: 0.9 % SODIUM CHLORIDE 10 ML SYRINGE IV SCH ×3 (05:00→20:23)
[2022-07-05 06:40] LABS: Basophils # (Auto) 0 K/mcL (0.00-0.30); Basophils % (Auto) 0 % (0.0-2.0); Eosinophils # (Auto) 0.01 K/mcL (0.00-0.70); Eosinophils % (Auto) 0.2 % (0.0-7.0); Hematocrit 38.2 % (40.1-51.0); Hemoglobin 13.4 g/dL (13.7-17.5); Lymphocytes # (Auto) 0.58 K/mcL (1.50-4.80); Lymphocytes % (Auto) 9.1 % (15.5-49.0); Mean Cell Volume 91.8 fL (80.0-100.0); Mean Corpuscular HGB Conc 35.1 g/dL (31.0-36.0); Mean Platelet Volume 11.3 fL (8.8-12.5); Monocytes # (Auto) 1.22 K/mcL (0.10-0.90); Monocytes % (Auto) 19.2 % (1.0-12.0); Platelet Count 104 K/mcL (140-440); RBC 4.16 M/mcL (4.63-6.08); Red Cell Distribution Width 13.5 % (11.5-14.5); WBC 6.3 K/mcL (4.5-11.0)
[2022-07-05 07:06] LABS: ALT/SGPT 29 U/L (<40); AST/SGOT 34 U/L (<40); Albumin 3.6 gm/dL (3.2-5.2); Albumin/Globulin Ratio 1.6 (1.0-2.3); Alkaline Phosphatase 48 U/L (39-117); Bilirubin,Total 0.7 mg/dL (0.1-1.0); Blood Urea Nitrogen 20 mg/dL (8-23); Calcium 7.8 mg/dL (8.6-10.4); Carbon Dioxide 23 mmol/L (22-30); Chloride 99 mmol/L (96-108); Globulin 2.2 gm/dL (2.2-3.7); Glomerular Filtration Rate 54; Glucose 119 mg/dL (70-105)
[2022-07-05] MEDS ORDERED: CYCLOBENZAPRINE 10 MG TABLET PO PRN (08:29)
[2022-07-05] MEDS: DOCUSATE SODIUM 100 MG CAPSULE PO SCH ×2 (09:11→20:22)
[2022-07-05] MEDS: LEVOTHYROXINE 75 MCG TABLET PO SCH (09:20)
[2022-07-05] MEDS: ASPIRIN 325 MG ENTERIC COATED TABLET PO SCH (09:20)
[2022-07-05] MEDS: PREGABALIN 150 MG CAPSULE PO SCH ×2 (09:20→20:22)
[2022-07-05] MEDS: CEFEPIME 2 GM VIAL IV SCH ×2 (09:21→20:28)
[2022-07-05] MEDS: HEPARIN 5,000 UNIT/ML VIAL SQ SCH ×2 (09:21→20:21)
[2022-07-05] MEDS: TAMSULOSIN 0.4 MG CAPSULE PO SCH (09:21)
[2022-07-05] MEDS: SENNOSIDES 1 TABLET PO SCH (20:22)
[2022-07-05] MEDS ORDERED: TRAVOPROST OPHTH DROPS BOTTLE 2.5ML OD SCH (21:00)
[2022-07-06] MEDS: oxyCODONE HCL 5 MG TABLET PO PRN (01:48)
[2022-07-06] MEDS: 0.9 % SODIUM CHLORIDE 10 ML SYRINGE IV SCH (05:13)
[2022-07-06 07:12] LABS: Basophils # (Auto) 0 K/mcL (0.00-0.30); Basophils % (Auto) 0 % (0.0-2.0); Eosinophils # (Auto) 0.09 K/mcL (0.00-0.70); Eosinophils % (Auto) 1.5 % (0.0-7.0); Hematocrit 40.5 % (40.1-51.0); Hemoglobin 14.1 g/dL (13.7-17.5); Lymphocytes # (Auto) 0.82 K/mcL (1.50-4.80); Mean Cell Volume 92.3 fL (80.0-100.0); Mean Corpuscular HGB Conc 34.8 g/dL (31.0-36.0); Mean Platelet Volume 11.3 fL (8.8-12.5); Monocytes # (Auto) 1.08 K/mcL (0.10-0.90); Monocytes % (Auto) 18.5 % (1.0-12.0); Neutrophils % (Auto) 65.5 % (38.0-78.0); Platelet Count 126 K/mcL (140-440); RBC 4.39 M/mcL (4.63-6.08); Red Cell Distribution Width 13.7 % (11.5-14.5); WBC 5.8 K/mcL (4.5-11.0)
[2022-07-06 07:21] LABS: ALT/SGPT 32 U/L (<40); AST/SGOT 39 U/L (<40); Albumin 3.8 gm/dL (3.2-5.2); Albumin/Globulin Ratio 1.7 (1.0-2.3); Alkaline Phosphatase 52 U/L (39-117); Bilirubin,Direct 0.2 mg/dL (<0.3); Bilirubin,Total 0.7 mg/dL (0.1-1.0); Blood Urea Nitrogen 25 mg/dL (8-23); Calcium 8.2 mg/dL (8.6-10.4); Carbon Dioxide 26 mmol/L (22-30); Chloride 100 mmol/L (96-108); Globulin 2.2 gm/dL (2.2-3.7); Glomerular Filtration Rate 66; Glucose 130 mg/dL (70-105); Lactate Dehydrogenase 350 U/L (135-225); Phosphorous 2.2 mg/dL (2.5-4.5); Triglycerides 181 mg/dL (<150); Uric Acid 7.1 mg/dL (2.5-8.0)
[2022-07-06] MEDS: TAMSULOSIN 0.4 MG CAPSULE PO SCH (08:31)
[2022-07-06] MEDS: LEVOTHYROXINE 75 MCG TABLET PO SCH (08:31)
[2022-07-06] MEDS: ASPIRIN 325 MG ENTERIC COATED TABLET PO SCH (08:31)
[2022-07-06] MEDS: PREGABALIN 150 MG CAPSULE PO SCH (08:31)
[2022-07-06] MEDS: DOCUSATE SODIUM 100 MG CAPSULE PO SCH (08:32)
[2022-07-06] MEDS: HEPARIN 5,000 UNIT/ML VIAL SQ SCH (08:32)
--- NOTE | 2022-07-06 08:40 | Discharge Summary ---
Discharge Provider Provider IMPORTANT FOLLOW-UP INFORMATION FOR PCP: Patient information: Note initiated : 07/06/22 at 8:38 am Service Date, if different from initiated Date: [] Patient: Jessica Casarez 71 y/o M admitted on 07/04/22 for Fever. Chief Complaint: [] Date of admission: 07/04/22 02:47 Discharge date: 07/06/22 Primary care physician: Page Edwards DO Consults: 07/04/22 Consult to Physician [CONS] Stat Comment: Consulting Provider: Drake Brewer Reason For Exam: Physician to Consult COURSE Hospital Course Hospital course: Mr. Casarez is a 71 year old M history of CHF, BPH, essential hypertensions, hypothyroidism, presenting with 5-day history of general body weakness, subjective fever, abdominal pain, dysuria. He had a cystoscopy done by his own urologist Dr. Kruger last 07/02/2022 and presented to the ED complaining of general body weakness, subjective fever, abdominal pain, and dysuria since the procedure. He denied any nausea or vomiting. He complaining of difficulty urinating but it has been a chronic problem for him. Due to the persistence nature of his symptoms, he decided to came to our ED last night for evaluation and treatments. Vital signs significant for tachycardia tachypnea and fever with T-max 38.3. Labs significant for leukocytosis with WBC of 12.5. Lactic acid 1.3. Procalcitonin 0.27. UA suggesting the presence of urinary tract infections. CT of the abdomen pelvis also suggesting the presence of cystitis. It also shows a 5 cm border mouth diverticula of the posterior bladder wall s 3 to 4 stones within diverticulum. CXR unremarkable. 07/05 Patient had high-grade temperatures overnight, yesterday afternoon had a fever of 100.9. Leukocytosis resolved, afebrile. Yesterday evening the patient was transitioned to cefepime due to higher risk of a resistant bacteria given recent cystoscopy.b Urine culture pending, preliminary blood culture showing no growth to date. Creatinine about the same as yesterday, making urine. Discontinued IV fluid. 07/06 Fevers have resolved, renal function normal. Discharge the patient to home with ciprofloxacin 500 mg twice daily for 5 more days. Resumed all home medications at discharge, follow-up with urology as scheduled in mid July. Physical exam Head: Atraumatic, normal inspection. Eyes: normal appearance, no scleral icterus. Neck: full ROM Respiratory: no respiratory distress. Cardiovascular: normal rate and rhythm, S1, S2. GI/Abdominal: soft, nontender, no guarding. Extremities: full range of motion, nontender. Neurological: CN II-XII intact, intact motor, intact sensation. Psychiatric: normal mood. Skin: warm, normal color Discharge diagnosis: Severe sepsis secondary to urinary tract infection Secondary discharge diagnosis: Acute kidney injury secondary to sepsis Time Spent with Patient Time attestation: Total time spent providing and/or coordinating discharge services: Time spent: Less than 30 minutes EXAM Constitutional Vitals: Temp Pulse Resp BP Pulse Ox O2 Del Method 97.5 F 61 12 126/81 97 07/06/22 07:11 07/06/22 07:11 07/06/22 07:11 07/06/22 07:11 07/06/22 07:11 07/06/22 07:11 Discharge Data Data Completed and Pending Labs on day of discharge: Labs from last 24 hours 07/06/22 07/06/22 06:00 06:00 WBC 5.8 RBC 4.39 L Hgb 14.1 Hct 40.5 MCV 92.3 MCH 32.1 MCHC 34.8 RDW 13.7 Plt Count 126 L MPV 11.3 Immature Gran % (Auto) 0.5 Neut % (Auto) 65.5 Lymph % (Auto) 14.0 L [place] % (Auto) 18.5 H Eos % (Auto) 1.5 Baso % (Auto) 0 Lymph # (Auto) 0.82 L [place] # (Auto) 1.08 H Eos # (Auto) 0.09 Baso # (Auto) 0 Immature Gran # 0.03 Absolute Neutrophils 3.82 Sodium 133 Potassium 3.9 Chloride 100 Carbon Dioxide 26 Anion Gap 7.0 L BUN 25 H Creatinine 1.1 GFR Calculation 66 Glucose 130 H Uric Acid 7.1 Calcium 8.2 L Phosphorus 2.2 L Magnesium 2.2 Total Bilirubin 0.7 Direct Bilirubin 0.2 GGT 12 AST 39 ALT 32 Alkaline Phosphatase 52 Lactate Dehydrogenase 350 H Total Protein 6.0 Albumin 3.8 Globulin 2.2 Albumin/Globulin Ratio 1.7 Triglycerides 181 H Preliminary micro results at discharge 07/03/22 22:58 Blood Culture - Preliminary Blood 07/03/22 22:48 Blood Culture - Preliminary Blood 07/03/22 22:14 Urine Culture - Preliminary Urine - Clean Void Mid-Stream Enterobacter species Discharge Plan Patient/Caregiver Discharge Instructions Activity: increase activity as tolerated Diet: Regular Diet Prescriptions: New ciprofloxacin HCl [Cipro] 500 mg tablet 500 mg PO BID 5 Days Qty: 10 0RF Continued levothyroxine 75 mcg tablet 75 mcg PO QDAY Qty: 90 0RF aspirin 325 mg tablet 325 mg PO QDAY travoprost [Travatan Z] 0.004 % drops 1 drp OPHTHALMIC QPM cyclobenzaprine 5 mg tablet 5 mg PO QHS PRN (Reason: Muscle Spasm) Lyrica 150 mg capsule 150 mg PO BID Rx Instructions: takes it at noon and bedtime candesartan 16 mg tablet 16 mg PO BID tamsulosin [Flomax] 0.4 mg capsule 0.4 mg PO QDAY Qty: 30 0RF Rx Instructions: both eyes spironolactone 25 mg 25 mg PO QDAY Follow Up Plan Follow up with: Page Ewdards DO [Primary Care Provider] - Patient Disposition: Home, Self-Care Rehab Potential: Fair Overall status at discharge: patient is progressing back to baseline Discharge Orders: Discharge Order (Routine); Ordered 07/06/22 Ordered By: Finesse MENSAH VTE Deep Vein Thrombosis/Pulmonary Embolism Present on Admission: No
[2022-07-06] MEDS: CEFEPIME 2 GM VIAL IV SCH (09:01)
[2022-07-06] MEDS ORDERED: FLU VACC QS2022-23(6MOS UP)/PF 60 MCG/0.5 ML SYRINGE IM ONE (11:00)
== END 2022-07-06 10:52 | disposition home or self-care (01) | DRG 872 ==
LOC: ED 21:11 → MEDSUR 07-04 02:47
PROVIDERS: ADMIT Internal Medicine; ATTEND Internal Medicine

== ENCOUNTER 2023-02-27 18:42 | Inpatient (IN) ==
--- NOTE | 2023-02-27 19:15 | Emergency Department Note ---
Male Urogenital HPI General Chief complaint: Urogenital-Male Stated complaint: sob Time Seen by Provider: 02/27/23 19:10 Source: patient Mode of arrival: ambulatory Limitations: no limitations History of Present Illness HPI Narrative: Narrative: This is a 72-year-old male who presents to the emergency department with complaints of urinary retention. He states that he is being followed by urology and has been on Bactrim since the beginning of January. He has been getting multiple UTIs. He states that over the last day or 2 he notices that its been harder to start his stream and has become more painful and he has noted burning when he urinates. He states that today he is noted that he has been unable to go more than just a little bit and feels like he is not fully emptying out his bladder. Has also noticed that he has been coming more more short of breath since . He states that he has a history of CHF COPD and feels as though he might have more congestion than normal. He denies any lower extremity swelling. And he has noted that the shortness of breath does worsen with exertion. He states that he has some chest tightness associated with this. He states that he was taken off Lasix about a year or 2 ago and was placed on spironolactone and candesartan. He said that he has been well controlled on this until recently. His daughter is concerned that he may be having another congestive heart failure exacerbation. She has noted that his breathing has been harder even with his BiPAP on at night. Patient denies any fevers. He has been coughing more than normal. Related Data Home Medications Medication Instructions Recorded Confirmed cyclobenzaprine 5 mg tablet 5 mg PO QHS PRN Muscle Spasm 06/18/15 02/09/23 travoprost 0.004 % eye drops 1 drp ophthalmic (eye) QPM 06/18/15 02/09/23 (Travatan Z) aspirin 325 mg tablet 325 mg PO QDAY 06/25/15 02/09/23 pregabalin 150 mg capsule (Lyrica) 150 mg PO BID 01/30/19 02/09/23 candesartan 16 mg tablet 16 mg PO BID 04/14/21 02/09/23 spironolactone 25 mg PO QDAY 07/04/22 02/09/23 Previous Rx's Medication Instructions Recorded tamsulosin 0.4 mg capsule (Flomax) 0.4 mg PO QDAY #30 caps 12/14/22 nitrofurantoin 100 mg PO DAILY #30 caps 01/01/23 monohydrate/macrocrystals 100 mg capsule (Macrobid) levothyroxine 75 mcg tablet 75 mcg PO QDAY #90 tabs 01/11/23 meloxicam 15 mg tablet 15 mg PO QDAY #30 tabs 02/09/23 methocarbamol 750 mg tablet 750 mg PO Q8H #60 tabs 02/09/23 Allergies Allergy/AdvReac Type Severity Reaction Status Date / Time amlodipine Allergy Intermediate Swelling Verified 02/27/23 18:46 LAKESHA Inhibitors AdvReac Mild Cough Verified 02/27/23 18:46 hydrocodone-acetaminophen AdvReac Mild Nausea Uncoded 02/09/23 08:57 Review of Systems ROS ROS Narrative: Narrative: All systems ED: reviewed and negative except as stated. PFSH Narrative Patient History Narrative: Narrative: Medical/Surgical/Family History All Active Problems (Updated 02/27/23 @ 23:37 by Yvette Aiken PA-C) Acute exacerbation of CHF (congestive heart failure) (Acute) Acute UTI (Acute) Lumbar pain (Acute) Acute gout (Acute) Stage 1 acute kidney injury (Acute) CHF (congestive heart failure) (Acute) BPH (benign prostatic hyperplasia) (Acute) Acute urinary retention (Acute) Sepsis (Acute) Acute UTI (Acute) Low back pain (Acute) Medicare annual wellness visit, subsequent (Acute) Cerumen impaction (Acute) Right hip pain (Acute) Diarrhea (Acute) Diarrhea (Acute) UTI (urinary tract infection) (Acute) Acute confusion (Acute) Hypertension, essential (Acute) Acute UTI (Acute) Need for hepatitis B screening test (Acute) Gastroesophageal reflux disease (Chronic) Hiatal hernia (Chronic) Pulmonary infiltrate (Chronic) COPD (chronic obstructive pulmonary disease) (Chronic) Hyperlipidemia (Chronic) Abnormal CT scan, bladder (Chronic) LVH (left ventricular hypertrophy) (Chronic) Lung nodules (Chronic) Elevated CK (Chronic) Obstructive Sleep Apnea-Hypopnea Syndrome (Chronic) Neck Pain (Chronic) History of esophagogastroduodenoscopy (Chronic 08/07/15) Weight loss (Chronic) Vitamin D deficiency (Chronic) Urethral stricture, traumatic (Chronic) Polycythemia (Chronic) Osteoarthritis (Chronic) Obstructive sleep apnea (Chronic) Low back pain (Chronic) Hypothyroidism (acquired) (Chronic) Hypertension, essential (Chronic) Headache (Chronic) Glaucoma (Chronic) Fatigue (Chronic) Elevated PSA (Chronic) Derangement of joint (Chronic) Degenerative disc disease (Chronic) Bradycardia (Chronic) BPH without obstruction/lower urinary tract symptoms (Chronic) Arrhythmia (Chronic) Allergic rhinitis (Chronic) Medical History Acute prostatitis Allergic rhinitis Arrhythmia over the summer 2011 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 Remote BPH without obstruction/lower urinary tract symptoms Bradycardia H/O COPD (chronic obstructive pulmonary disease) Degenerative disc disease Derangement of joint Diarrhea Diarrhea Elevated PSA H/O Fatigue Gastroesophageal reflux disease Glaucoma Headache Hiatal hernia Hypertension, essential Hypothyroidism (acquired) Low back pain Low back pain Medicare annual wellness visit, initial Medicare annual wellness visit, subsequent Nausea Obstructive sleep apnea Osteoarthritis Polycythemia Pulmonary infiltrate Urethral stricture, traumatic Vitamin D deficiency Weight loss 10 pounds Surgical History History of colonoscopy with polypectomy (06/16/17) History of esophagogastroduodenoscopy (08/07/15) Hx of appendectomy Hx of colonoscopy (02/04/23) 04/08/07-diverticuli and hemorrhoids. 06/16/17-TA. Dr Agarwal Hx of esophagogastroduodenoscopy 03/30 dilated GERD Hx of fusion of cervical spine 01/30/12-anterior cervical disc and fusion x2 Family History mother Diabetes mellitus Essential hypertension Chronic Kidney Disease daughter Diabetes mellitus Social History Smoking Status: Never smoker Alcohol Intake Frequency: does not drink Substance Use: does not use Exam Narrative Narrative: Narrative: General Limitations: no limitations General appearance: Present alert, in distress (mild respiratory ), nontoxic and obese Head Head: Present atraumatic and normocephalic Eye Eye: Present normal appearance; Absent scleral icterus Neck Neck: Present normal inspection, full ROM and trachea midline Chest Chest: Present normal inspection and symmetric chest wall rise Respiratory Respiratory: Present normal lung sounds bilaterally and respiratory distress (mild) Cardiovascular Cardiovascular: Present regular rate, normal rhythm and normal heart sounds Adbominal Abdominal: Present soft and tenderness (suprapubic); Absent distention, guarding, rebound or rigidity Extremities Extremities: Present normal inspection; Absent pedal edema Neurological Neurological: Present alert, oriented X3 and normal gait Psychiatric Psychiatric: Present normal affect and normal mood Course Vital Signs Vital signs: Vital Signs Temperature 98.1 F 02/27/23 18:43 Pulse Rate 94 H 02/27/23 18:43 Respiratory Rate 20 02/27/23 18:43 Blood Pressure 110/70 02/27/23 18:43 Pulse Oximetry (%) 92 02/27/23 18:43 Temperature 98.1 F 02/27/23 18:43 Pulse Rate 81 02/27/23 22:31 Respiratory Rate 19 02/27/23 22:16 Blood Pressure 100/68 02/27/23 22:31 Pulse Oximetry (%) 92 02/27/23 22:31 Oxygen Delivery Method Room Air 02/27/23 22:05 Oxygen Flow Rate (L/min) 2 02/27/23 22:05 [facility] MDM Narrative Medical decision making narrative: Narrative: This is a 72-year-old male who presents to the emergency department for what seems to be urinary retention secondary to worsening UTI. But also noted to have increasing shortness of breath with a history of CHF and COPD. IV access was established for administration of fluids and medications if needed. Labs were drawn. His labs revealed a elevated white blood cell count of 19.2 with an associated left shift. His lactate was 1.9 but his procalcitonin was 3.04 it was noted that his urine was hazy with positive leuks positive red blood cells positive white blood cells with culture present pending. With concern with his shortness of breath and possible CHF exacerbation I did check a BNP which was noted to be 830.9. It was noted that his BUN and creatinine were also elevated at 31 and 1.9 respectively his affect hector panel showed his AST was 53 ALT was 110 and alk phos was 172 all slightly elevated. This his sodium was slightly decreased to 132 and his potassium was slightly elevated at 5.4. Considering his urine did show a urinary tract infection and I suspect that that is what is causing his urinary retention I did give him a dose of ceftriaxone 2 g in the emergency department. A chest x-ray was performed which just does show some mild pulmonary edema in the lung bases. I reviewed this x-ray with Dr. Dias. An EKG was done as well which showed sinus rhythm with a rate of 75 a right bundle branch block and concern for possible minimal ST elevation in the lateral leads. When compared to his previous EKGs there were no acute changes. A troponin was done and it came in at 0.02. It was noted that while he was in the room his O2 sats decreased to 88%. He was placed on 2 L of oxygen via nasal cannula. Patient states that he does not use oxygen regularly at home but he does use a BiPAP at night. He was also given a dose of Lasix 40 mg IV in the ED. Considering his elevated white blood cell count elevated procalcitonin the fact that he does have a UTI and the need for oxygen that he normally does not need at home I do feel that he should be considered for admission for this. I discussed the patient with Dr. Aldridge who agreed to admission. Pt will use his own BiPaP machine while on the floor. Holding orders were placed. Sepsis Sepsis Identified: No Differential Diagnosis Differential Diagnosis: Urinary retention, UTI, urosepsis, CHF exacerbation, pneumonia, NSTEMI, Medical Records Medical records reviewed: Yes I reviewed the patient's medical records. Lab Data Lab results reviewed: Yes I reviewed the patient's lab results. 02/27/23 20:56 Labs: Lab Results 02/27/23 02/27/23 02/27/23 Range/Units 20:46 20:55 20:56 WBC 19.2 H (4.5-11.0) K/mcL RBC 4.73 (4.63-6.08) M/mcL Hgb 14.9 (13.7-17.5) g/dL Hct 43.7 (40.1-51.0) % POC Hct (41-55) MCV 92.4 (80.0-100.0) fL MCH 31.5 (26.0-34.0) pg MCHC 34.1 (31.0-36.0) g/dL RDW 13.8 (11.5-14.5) % Plt Count 178 (140-440) K/mcL MPV 11.5 (8.8-12.5) fL Immature Gran % (Auto) 0.5 (0.0-0.5) % Neut % (Auto) 90.2 H (38.0-78.0) % Lymph % (Auto) 2.6 L (15.5-49.0) % [place] % (Auto) 6.5 (1.0-12.0) % Eos % (Auto) 0.1 (0.0-7.0) % Baso % (Auto) 0.1 (0.0-2.0) % Lymph # (Auto) 0.50 L (1.50-4.80) K/mcL [place] # (Auto) 1.24 H (0.10-0.90) K/mcL Eos # (Auto) 0.01 (0.00-0.70) K/mcL Baso # (Auto) 0.02 (0.00-0.30) K/mcL Immature Gran # 0.09 H (0.00-0.05) K/mcl Absolute Neutrophils 17.33 H (1.80-8.00) K/mcL POC VBG pH (7.32-7.42) POC VBG pCO2 at Temp (41-51) POC VBG pO2 (25-40) POC VBG HCO3 (24-28) POC VBG Total CO2 (25-29) POC Venous O2 Sat (40-70) POC VBG Base Excess (-2-2) VBG Lactic Acid (0.5-2) POC Sodium (133-145) POC Potassium (3.3-5.1) POC Chloride (96-108) POC Total CO2 (22-30) POC Anion Gap (8.0-16.0) POC BUN (6-20) POC Creatinine (0.6-1.2) POC Glucose (70-105) POC WB Ioniz Calcium (1.16-1.32) Total Bilirubin (0.1-1.0) mg/dL Direct Bilirubin (<0.3) mg/dL AST (<40) U/L ALT (<40) U/L Alkaline Phosphatase (39-117) U/L NT-Pro-B Natriuret Pep (<125.0) pg/mL Total Protein (5.9-8.4) gm/dL Albumin (3.2-5.2) gm/dL Globulin (2.2-3.7) gm/dL Procalcitonin 3.04 H (<0.10) ng/mL Urine Color Yellow Urine Appearance Hazy A (Clear) Urine pH 6.0 (5.0-9.0) Ur Specific [place] 1.014 (1.000-1.035) Urine Protein 100 A (Negative) mg/dL Urine Glucose (UA) Negative (Negative) mg/dL Urine Ketones Negative (Negative) mg/dL Urine Occult Blood >=1.0 A (Negative) mg/dL Urine Nitrate Negative (Negative) Urine Bilirubin Negative (Negative) mg/dL Urine Urobilinogen Negative mg/dL Ur Leukocyte Esterase 250 A (Negative) /uL Urine RBC 151 H (0-3) /hpf Urine WBC > 182 H (0-4) /hpf Ur Squamous Epith Cells 0 (0-4) /hpf Urine Bacteria None (0) /hpf Urine Mucus Few A (None) /hpf Ur Culture Indicated? yes POC Troponin I (0.00-0.08) 02/27/23 02/27/23 02/27/23 Range/Units 20:56 20:57 20:57 WBC (4.5-11.0) K/mcL RBC (4.63-6.08) M/mcL Hgb (13.7-17.5) g/dL Hct (40.1-51.0) % POC Hct 47.0 (41-55) MCV (80.0-100.0) fL MCH (26.0-34.0) pg MCHC (31.0-36.0) g/dL RDW (11.5-14.5) % Plt Count (140-440) K/mcL MPV (8.8-12.5) fL Immature Gran % (Auto) (0.0-0.5) % Neut % (Auto) (38.0-78.0) % Lymph % (Auto) (15.5-49.0) % [place] % (Auto) (1.0-12.0) % Eos % (Auto) (0.0-7.0) % Baso % (Auto) (0.0-2.0) % Lymph # (Auto) (1.50-4.80) K/mcL [place] # (Auto) (0.10-0.90) K/mcL Eos # (Auto) (0.00-0.70) K/mcL Baso # (Auto) (0.00-0.30) K/mcL Immature Gran # (0.00-0.05) K/mcl Absolute Neutrophils (1.80-8.00) K/mcL POC VBG pH 7.44 H (7.32-7.42) POC VBG pCO2 at Temp 30.2 L (41-51) POC VBG pO2 40 (25-40) POC VBG HCO3 20.5 L (24-28) POC VBG Total CO2 21.0 L (25-29) POC Venous O2 Sat 77.0 H (40-70) POC VBG Base Excess -4.0 L (-2-2) VBG Lactic Acid 1.9 (0.5-2) POC Sodium 132 L (133-145) POC Potassium 5.4 H (3.3-5.1) POC Chloride 102 (96-108) POC Total CO2 20.0 L (22-30) POC Anion Gap 16.0 (8.0-16.0) POC BUN 31 H (6-20) POC Creatinine 1.9 H (0.6-1.2) POC Glucose 118 H (70-105) POC WB Ioniz Calcium 1.09 L (1.16-1.32) Total Bilirubin 0.8 (0.1-1.0) mg/dL Direct Bilirubin 0.3 H (<0.3) mg/dL AST 53 H (<40) U/L ALT 110 H (<40) U/L Alkaline Phosphatase 172 H (39-117) U/L NT-Pro-B Natriuret Pep 830.9 H (<125.0) pg/mL Total Protein 6.7 (5.9-8.4) gm/dL Albumin 3.8 (3.2-5.2) gm/dL Globulin 2.9 (2.2-3.7) gm/dL Procalcitonin (<0.10) ng/mL Urine Color Urine Appearance (Clear) Urine pH (5.0-9.0) Ur Specific [place] (1.000-1.035) Urine Protein (Negative) mg/dL Urine Glucose (UA) (Negative) mg/dL Urine Ketones (Negative) mg/dL Urine Occult Blood (Negative) mg/dL Urine Nitrate (Negative) Urine Bilirubin (Negative) mg/dL Urine Urobilinogen mg/dL Ur Leukocyte Esterase (Negative) /uL Urine RBC (0-3) /hpf Urine WBC (0-4) /hpf Ur Squamous Epith Cells (0-4) /hpf Urine Bacteria (0) /hpf Urine Mucus (None) /hpf Ur Culture Indicated? POC Troponin I (0.00-0.08) 02/27/23 Range/Units 21:01 WBC (4.5-11.0) K/mcL RBC (4.63-6.08) M/mcL Hgb (13.7-17.5) g/dL Hct (40.1-51.0) % POC Hct (41-55) MCV (80.0-100.0) fL MCH (26.0-34.0) pg MCHC (31.0-36.0) g/dL RDW (11.5-14.5) % Plt Count (140-440) K/mcL MPV (8.8-12.5) fL Immature Gran % (Auto) (0.0-0.5) % Neut % (Auto) (38.0-78.0) % Lymph % (Auto) (15.5-49.0) % [place] % (Auto) (1.0-12.0) % Eos % (Auto) (0.0-7.0) % Baso % (Auto) (0.0-2.0) % Lymph # (Auto) (1.50-4.80) K/mcL [place] # (Auto) (0.10-0.90) K/mcL Eos # (Auto) (0.00-0.70) K/mcL Baso # (Auto) (0.00-0.30) K/mcL Immature Gran # (0.00-0.05) K/mcl Absolute Neutrophils (1.80-8.00) K/mcL POC VBG pH (7.32-7.42) POC VBG pCO2 at Temp (41-51) POC VBG pO2 (25-40) POC VBG HCO3 (24-28) POC VBG Total CO2 (25-29) POC Venous O2 Sat (40-70) POC VBG Base Excess (-2-2) VBG Lactic Acid (0.5-2) POC Sodium (133-145) POC Potassium (3.3-5.1) POC Chloride (96-108) POC Total CO2 (22-30) POC Anion Gap (8.0-16.0) POC BUN (6-20) POC Creatinine (0.6-1.2) POC Glucose (70-105) POC WB Ioniz Calcium (1.16-1.32) Total Bilirubin (0.1-1.0) mg/dL Direct Bilirubin (<0.3) mg/dL AST (<40) U/L ALT (<40) U/L Alkaline Phosphatase (39-117) U/L NT-Pro-B Natriuret Pep (<125.0) pg/mL Total Protein (5.9-8.4) gm/dL Albumin (3.2-5.2) gm/dL Globulin (2.2-3.7) gm/dL Procalcitonin (<0.10) ng/mL Urine Color Urine Appearance (Clear) Urine pH (5.0-9.0) Ur Specific [place] (1.000-1.035) Urine Protein (Negative) mg/dL Urine Glucose (UA) (Negative) mg/dL Urine Ketones (Negative) mg/dL Urine Occult Blood (Negative) mg/dL Urine Nitrate (Negative) Urine Bilirubin (Negative) mg/dL Urine Urobilinogen mg/dL Ur Leukocyte Esterase (Negative) /uL Urine RBC (0-3) /hpf Urine WBC (0-4) /hpf Ur Squamous Epith Cells (0-4) /hpf Urine Bacteria (0) /hpf Urine Mucus (None) /hpf Ur Culture Indicated? POC Troponin I 0.02 (0.00-0.08) Radiology Data Radiology results reviewed: Yes I reviewed the patient's radiology results. Radiology results narrative: I reviewed the patient's chest x-ray with Dr. Dias who agreed that there is some fluid in the lower bases of his lungs. EKG Data EKG #1: EKG attestation: Yes I reviewed and interpreted this EKG. EKG results narrative: With Dr. Dias Rate: normal Reading/QRS: left axis deviation, RBBB and LAHB/LAFB ST segment elevation in: v4 (Minimal elevation in these leads), v5 and v6 When compared to previous EKG there are: no significant changes Interpretation: no acute changes Pulse Oximetry Data Pulse Ox %: 92 Interpretation: O2 saturation is 92% with 2 L of oxygen via nasal cannula. Discharge Plan Patient/Caregiver Discharge Instructions Pt seen by SENIOR HEALTH CONSULTANT/PA only: Yes Clinical Impression: Acute exacerbation of CHF (congestive heart failure), Acute UTI Patient Disposition: Xfer As Inpt ([facility]) Follow up with: Jasson Chavez DO [Primary Care Provider] - Prescriptions: No Action levothyroxine 75 mcg tablet 75 mcg PO QDAY Qty: 90 0RF aspirin 325 mg tablet 325 mg PO QDAY travoprost [Travatan Z] 0.004 % drops 1 drp OPHTHALMIC QPM cyclobenzaprine 5 mg tablet 5 mg PO QHS PRN (Reason: Muscle Spasm) Lyrica 150 mg capsule 150 mg PO BID Rx Instructions: takes it at noon and bedtime candesartan 16 mg tablet 16 mg PO BID tamsulosin [Flomax] 0.4 mg capsule 0.4 mg PO QDAY Qty: 30 0RF Rx Instructions: both eyes nitrofurantoin monohyd/m-cryst [Macrobid] 100 mg capsule 100 mg PO DAILY Qty: 30 0RF Rx Instructions: must administer with a meal/food methocarbamol 750 mg tablet 750 mg PO Q8H Qty: 60 0RF meloxicam 15 mg tablet 15 mg PO QDAY Qty: 30 0RF spironolactone 25 mg 25 mg PO QDAY
[2023-02-27] MEDS ORDERED: IPRATROPIUM/ALBUTEROL 3 ML AMPUL.NEB NEB ONE (20:36)
[2023-02-27 21:13] LABS: POC Calcium, Ionized 1.09 (1.16-1.32); POC Creatinine 1.9 (0.6-1.2); POC Potassium 5.4 (3.3-5.1)
[2023-02-27 21:24] LABS: Appearance,Urine HAZY (Clear); Bilirubin,Urine Negative (Negative); Color,Urine YELLOW; Culture Indicated,Urine yes; Glucose,Urine (UA) Negative (Negative); Ketones,Urine Negative (Negative); Leukocyte Esterase,Urine 250 /uL (Negative); Mucus,Urine FEW /hpf; Nitrate,Urine Negative (Negative); Protein,Urine 100 mg/dL (Negative); Specific Gravity,Urine 1.014 (1.000-1.035); Urine Blood >=1.0 mg/dL (Negative); Urine RBC 151 /hpf (0-3); Urine Squamous Epithelial Cell 0 /hpf (0-4); Urine WBC > 182 /hpf (0-4); Urobilinogen,Urine Negative
[2023-02-27 21:27] LABS: Basophils # (Auto) 0.02 K/mcL (0.00-0.30); Basophils % (Auto) 0.1 % (0.0-2.0); Eosinophils # (Auto) 0.01 K/mcL (0.00-0.70); Eosinophils % (Auto) 0.1 % (0.0-7.0); Hematocrit 43.7 % (40.1-51.0); Hemoglobin 14.9 g/dL (13.7-17.5); Lymphocytes % (Auto) 2.6 % (15.5-49.0); Mean Cell Volume 92.4 fL (80.0-100.0); Mean Corpuscular HGB Conc 34.1 g/dL (31.0-36.0); Mean Platelet Volume 11.5 fL (8.8-12.5); Monocytes # (Auto) 1.24 K/mcL (0.10-0.90); Monocytes % (Auto) 6.5 % (1.0-12.0); Neutrophils % (Auto) 90.2 % (38.0-78.0); Platelet Count 178 K/mcL (140-440); RBC 4.73 M/mcL (4.63-6.08); Red Cell Distribution Width 13.8 % (11.5-14.5); WBC 19.2 K/mcL (4.5-11.0)
[2023-02-27] MEDS ORDERED: cefTRIAXone 2 GM in DEXTROSE 5% IN WATER 50 ML IV ONE (21:33)
[2023-02-27 21:47] LABS: ALT/SGPT 110 U/L (<40); AST/SGOT 53 U/L (<40); Albumin 3.8 gm/dL (3.2-5.2); Alkaline Phosphatase 172 U/L (39-117); Bilirubin,Direct 0.3 mg/dL (<0.3); Bilirubin,Total 0.8 mg/dL (0.1-1.0); Globulin 2.9 gm/dL (2.2-3.7); proBNP 830.9 pg/mL (<125.0)
[2023-02-27] MEDS ORDERED: FUROSEMIDE 40 MG/4 ML VIAL IV ONE (21:59)
[2023-02-27] MEDS ORDERED: ONDANSETRON 4 MG/2 ML VIAL IV PRN (23:23)
[2023-02-27] MEDS ORDERED: cefTRIAXone 2 GM in DEXTROSE 5% IN WATER 50 ML IV SCH (23:30)
[2023-02-28] MEDS ORDERED: ACETAMINOPHEN 325 MG TABLET PO PRN (01:24)
[2023-02-28] MEDS ORDERED: CYCLOBENZAPRINE 10 MG TABLET PO PRN (01:25)
[2023-02-28] MEDS ORDERED: PREGABALIN 150 MG CAPSULE PO STA (01:29)
[2023-02-28] MEDS ORDERED: PREGABALIN 100 MG CAPSULE PO ONE (01:35)
--- NOTE | 2023-02-28 06:01 | XRay Report ---
INDICATION: dyspnea TECHNIQUE: PA and lateral upright chest x-ray COMPARISON: Chest x-rays dated 07/03/2022, 10/09/2020 FINDINGS: Lungs: Focal parenchymal density at the right lung bases most consistent with atelectasis. No parenchymal consolidation. No parenchymal mass Heart, vascular: No significant cardiomegaly. Pulmonary vascularity is normal. No pulmonary edema or pulmonary congestion Mediastinum, katarzyna: No mediastinal widening. No hilar mass Pleura:No pleural fluid. No pleural-based mass or calcification Thoracic spine, ribs: No thoracic compression fracture. Ribs are negative. No fracture. No lytic lesion IMPRESSION: 1. Mild right basilar parenchymal density consistent with atelectasis 2. No evidence for congestive heart failure Interpreted and Authenticated by: Jasson Beltre 02/28/23
--- NOTE | 2023-02-28 06:51 | Internal Med History&Physical ---
HPI History of Present Illness Patient information: Note initiated : 02/28/23 at 6:51 am Service Date, if different from initiated Date: [] Patient: Jessica Casarez 72 y/o M admitted on 02/28/23 for sob. Chief Complaint: [] History of present illness: Mr. Casarez is a 72 year old male with history of BPH with obstructive symptoms, urethral stricture, recurrent UTIs, CHF, COPD, obstructive sleep apnea CPAP not tolerated, hypertension, CKD, hypothyroidism GERD, low back pain presented with urinary hesitancy, increased frequency, dysuria and complains of urinary retention. Patient is being followed by Dr. Kruger from urology and has been on Bactrim since middle of January for UTI prophylaxis. He is due to see urology next week for cystoscopy and further evaluation however starting 2 days ago he noticed that he was having increased dysuria, he was able to pass only small amount of urine feeling that he was not able to empty out his bladder whenever he tried. Yesterday he was unable to urinate at all and presented to ED. Patient has history of CHF, his family noted that he was a bit more short of breath for past couple days they thought he was more congested than normal. Patient himself denies any shortness of breath, lower extremity edema or cough. His senior radiation therapist took him off Lasix about 2 years ago and placed him on spironolactone and candesartan. Patient denies any fever or chills, reports occasional sputum production. On presentation patient was hypoxic with sats decreased to 88%, he was put on 2 L nasal cannula oxygen. Patient states she does not use oxygen at home but uses CPAP/BiPAP at night. Lab revealed a elevated white blood cell count of 19.2 with an associated left shift. His lactate was 1.9 but his procalcitonin was 3.04. UA with positive leukocyte esterase, positive RBCs, positive WBC with culture pending. BUN and creatinine elevated at 31 and 1.9 respectively. Sodium low at 132 and potassium elevated at 5.4. AST was 53 ALT was 110 and alk phos was 172 all slightly elevated. BNP elevated 830. Chest x-ray showed atelectasis at right lung base, no evidence of pulmonary congestion. No evidence of CHF. EKG showed sinus rhythm ventricular rate 75 with right bundle branch morphology, no acute changes when compared to previous EKG. Troponin negative at 0.02. Patient was given Lasix in ED for suspected CHF. Review of system 14 point review of system obtained was negative except mentioned above Physical examination General appearance: Present alert, awake in no acute distress Head: Present atraumatic and normocephalic Eye: Present normal appearance; Absent scleral icterus Neck: Present normal inspection, full ROM and trachea midline Chest: Present normal inspection and symmetric chest wall rise Respiratory: Present mild end expiratory wheeze, on supplemental oxygen, no tachypnea or respiratory distress Cardiovascular: Present regular rate, normal rhythm and normal heart sounds Abdominal: Present soft and mild tenderness (suprapubic); Absent distention, guarding, rebound or rigidity Extremities: Present normal inspection; Absent pedal edema Neurological: Present alert, oriented X3 and normal gait Psychiatric: Present normal affect and normal mood : Choi catheter in place and draining veronica-colored urine Assessment and plan Urinary tract infection. Discontinue ceftriaxone. Previous multiple urine cultures grew Enterococcus faecium, per sensitivity we will start patient on IV Unasyn 3 g every 6 hours. Follow urine culture BPH with obstructive symptoms, continue tamsulosin. Status post Choi catheter Acute urinary retention, secondary to above, Choi catheter in place Hyperkalemia 5.4 on admission. Now corrected. Spironolactone on hold Hyponatremia 132 on admission. Monitor CHF, BNP elevated at 800, chest x-ray without significant vascular congestion. No peripheral edema. Patient does not appear to be in decompensated heart failure. On aspirin 325 mg daily, hold further diuresis with Lasix. Hold home spironolactone and candesartan. Echocardiogram ordered Mild COPD exacerbation, DuoNebs 4 times daily, pulmonary toileting Obstructive sleep apnea, BiPAP/CPAP overnight and during naps, order placed Diabetes mellitus 2, blood glucose 118 on admission. Obtain A1c. Not on any obtain A1c and diet diabetic medication at home Hypertension, blood pressure is rather soft, hold candesartan. As needed hydralazine WILIAN on CKD stage II-III, baseline creatinine appears to be around 1.1. Creatinine 1.9 on admission. Hold nephrotoxic's including meloxicam, candesartan and spironolactone Hypothyroidism, continue levothyroxine. TSH, T4 ordered Low back pain, on Lyrica, Flexeril, methocarbamol, meloxicam DVT prophylaxis with SCDs Full code Total time taken 75 minutes PFS PFS All Active Problems (Updated 02/27/23 @ 23:37 by Yvetet Aiken PA-C) Acute exacerbation of CHF (congestive heart failure) (Acute) Acute UTI (Acute) Lumbar pain (Acute) Acute gout (Acute) Stage 1 acute kidney injury (Acute) CHF (congestive heart failure) (Acute) BPH (benign prostatic hyperplasia) (Acute) Acute urinary retention (Acute) Sepsis (Acute) Acute UTI (Acute) Low back pain (Acute) Medicare annual wellness visit, subsequent (Acute) Cerumen impaction (Acute) Right hip pain (Acute) Diarrhea (Acute) Diarrhea (Acute) UTI (urinary tract infection) (Acute) Acute confusion (Acute) Hypertension, essential (Acute) Acute UTI (Acute) Need for hepatitis B screening test (Acute) Gastroesophageal reflux disease (Chronic) Hiatal hernia (Chronic) Pulmonary infiltrate (Chronic) COPD (chronic obstructive pulmonary disease) (Chronic) Hyperlipidemia (Chronic) Abnormal CT scan, bladder (Chronic) LVH (left ventricular hypertrophy) (Chronic) Lung nodules (Chronic) Elevated CK (Chronic) Obstructive Sleep Apnea-Hypopnea Syndrome (Chronic) Neck Pain (Chronic) History of esophagogastroduodenoscopy (Chronic 08/07/15) Weight loss (Chronic) Vitamin D deficiency (Chronic) Urethral stricture, traumatic (Chronic) Polycythemia (Chronic) Osteoarthritis (Chronic) Obstructive sleep apnea (Chronic) Low back pain (Chronic) Hypothyroidism (acquired) (Chronic) Hypertension, essential (Chronic) Headache (Chronic) Glaucoma (Chronic) Fatigue (Chronic) Elevated PSA (Chronic) Derangement of joint (Chronic) Degenerative disc disease (Chronic) Bradycardia (Chronic) BPH without obstruction/lower urinary tract symptoms (Chronic) Arrhythmia (Chronic) Allergic rhinitis (Chronic) Medical History Acute prostatitis Allergic rhinitis Arrhythmia over the summer 2011 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 Remote BPH without obstruction/lower urinary tract symptoms Bradycardia H/O COPD (chronic obstructive pulmonary disease) Degenerative disc disease Derangement of joint Diarrhea Diarrhea Elevated PSA H/O Fatigue Gastroesophageal reflux disease Glaucoma Headache Hiatal hernia Hypertension, essential Hypothyroidism (acquired) Low back pain Low back pain Medicare annual wellness visit, initial Medicare annual wellness visit, subsequent Nausea Obstructive sleep apnea Osteoarthritis Polycythemia Pulmonary infiltrate Urethral stricture, traumatic Vitamin D deficiency Weight loss 10 pounds Surgical History History of colonoscopy with polypectomy (06/16/17) History of esophagogastroduodenoscopy (08/07/15) Hx of appendectomy Hx of colonoscopy (02/04/23) 04/08/07-diverticuli and hemorrhoids. 06/16/17-TA. 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 well-balanced diet: daily or most days eating out: rarely or never during the past year weight has: remained stable physical activity: none smoking status: Never smoker alcohol intake frequency: does not drink substance use type: does not use eric/shinto: Other MEDS/ALLERGIES Home Medications and Allergies Home Medications Medication Instructions Recorded Confirmed Type cyclobenzaprine 5 mg tablet 5 mg PO QHS PRN Muscle Spasm 06/18/15 02/09/23 History travoprost 0.004 % eye drops 1 drp ophthalmic (eye) QPM 06/18/15 02/09/23 History (Travatan Z) aspirin 325 mg tablet 81 mg PO QDAY 06/25/15 02/28/23 History pregabalin 150 mg capsule (Lyrica) 150 mg PO BID 01/30/19 02/09/23 History candesartan 16 mg tablet 16 mg PO BID 04/14/21 02/09/23 History spironolactone 25 mg PO QDAY 07/04/22 02/09/23 History tamsulosin 0.4 mg capsule (Flomax) 0.4 mg PO QDAY #30 caps 12/14/22 02/09/23 Rx levothyroxine 75 mcg tablet 75 mcg PO QDAY #90 tabs 01/11/23 02/09/23 Rx Allergies Allergy/AdvReac Type Severity Reaction Status Date / Time amlodipine Allergy Intermediate Swelling Verified 02/27/23 18:46 LAKESHA Inhibitors AdvReac Mild Cough Verified 02/27/23 18:46 hydrocodone-acetaminophen AdvReac Mild Nausea Uncoded 02/09/23 08:57 EXAM Constitutional Vitals: Temp Pulse Resp BP Pulse Ox O2 Del Method O2 Flow Rate 98.4 F 79 18 94/51 96 Oxymask 4.5 02/28/23 04:00 02/28/23 04:00 02/28/23 04:00 02/28/23 04:00 02/28/23 04:00 02/28/23 04:00 02/28/23 04:00 DATA Data Completed and Pending Labs: Labs from last 24 hours 02/28/23 02/28/23 02/27/23 05:09 05:09 21:01 WBC Pending RBC Pending Hgb Pending Hct Pending POC Hct MCV Pending MCH Pending MCHC Pending RDW Pending Plt Count Pending MPV Pending Immature Gran % (Auto) Pending Neut % (Auto) Pending Lymph % (Auto) [place] % (Auto) Eos % (Auto) Baso % (Auto) Lymph # (Auto) [place] # (Auto) Eos # (Auto) Baso # (Auto) Immature Gran # Pending Absolute Neutrophils POC VBG pH POC VBG pCO2 at Temp POC VBG pO2 POC VBG HCO3 POC VBG Total CO2 POC Venous O2 Sat POC VBG Base Excess VBG Lactic Acid POC Sodium Sodium Pending POC Potassium Potassium Pending POC Chloride Chloride Pending Carbon Dioxide Pending POC Total CO2 Anion Gap Pending POC Anion Gap POC BUN BUN Pending Creatinine Pending POC Creatinine GFR Calculation Pending Glucose Pending POC Glucose Calcium Pending POC WB Ioniz Calcium Total Bilirubin Direct Bilirubin AST ALT Alkaline Phosphatase NT-Pro-B Natriuret Pep Total Protein Albumin Globulin Procalcitonin Urine Color Urine Appearance Urine pH Ur Specific [place] Urine Protein Urine Glucose (UA) Urine Ketones Urine Occult Blood Urine Nitrate Urine Bilirubin Urine Urobilinogen Ur Leukocyte Esterase Urine RBC Urine WBC Ur Squamous Epith Cells Urine Bacteria Urine Mucus Ur Culture Indicated? POC Troponin I 0.02 02/27/23 02/27/23 02/27/23 20:57 20:57 20:56 WBC RBC Hgb Hct POC Hct 47.0 MCV MCH MCHC RDW Plt Count MPV Immature Gran % (Auto) Neut % (Auto) Lymph % (Auto) [place] % (Auto) Eos % (Auto) Baso % (Auto) Lymph # (Auto) [place] # (Auto) Eos # (Auto) Baso # (Auto) Immature Gran # Absolute Neutrophils POC VBG pH 7.44 H POC VBG pCO2 at Temp 30.2 L POC VBG pO2 40 POC VBG HCO3 20.5 L POC VBG Total CO2 21.0 L POC Venous O2 Sat 77.0 H POC VBG Base Excess -4.0 L VBG Lactic Acid 1.9 POC Sodium 132 L Sodium POC Potassium 5.4 H Potassium POC Chloride 102 Chloride Carbon Dioxide POC Total CO2 20.0 L Anion Gap POC Anion Gap 16.0 POC BUN 31 H BUN Creatinine POC Creatinine 1.9 H GFR Calculation Glucose POC Glucose 118 H Calcium POC WB Ioniz Calcium 1.09 L Total Bilirubin 0.8 Direct Bilirubin 0.3 H AST 53 H ALT 110 H Alkaline Phosphatase 172 H NT-Pro-B Natriuret Pep 830.9 H Total Protein 6.7 Albumin 3.8 Globulin 2.9 Procalcitonin Urine Color Urine Appearance Urine pH Ur Specific [place] Urine Protein Urine Glucose (UA) Urine Ketones Urine Occult Blood Urine Nitrate Urine Bilirubin Urine Urobilinogen Ur Leukocyte Esterase Urine RBC Urine WBC Ur Squamous Epith Cells Urine Bacteria Urine Mucus Ur Culture Indicated? POC Troponin I 02/27/23 02/27/23 02/27/23 20:56 20:55 20:46 WBC 19.2 H RBC 4.73 Hgb 14.9 Hct 43.7 POC Hct MCV 92.4 MCH 31.5 MCHC 34.1 RDW 13.8 Plt Count 178 MPV 11.5 Immature Gran % (Auto) 0.5 Neut % (Auto) 90.2 H Lymph % (Auto) 2.6 L [place] % (Auto) 6.5 Eos % (Auto) 0.1 Baso % (Auto) 0.1 Lymph # (Auto) 0.50 L [place] # (Auto) 1.24 H Eos # (Auto) 0.01 Baso # (Auto) 0.02 Immature Gran # 0.09 H Absolute Neutrophils 17.33 H POC VBG pH POC VBG pCO2 at Temp POC VBG pO2 POC VBG HCO3 POC VBG Total CO2 POC Venous O2 Sat POC VBG Base Excess VBG Lactic Acid POC Sodium Sodium POC Potassium Potassium POC Chloride Chloride Carbon Dioxide POC Total CO2 Anion Gap POC Anion Gap POC BUN BUN Creatinine POC Creatinine GFR Calculation Glucose POC Glucose Calcium POC WB Ioniz Calcium Total Bilirubin Direct Bilirubin AST ALT Alkaline Phosphatase NT-Pro-B Natriuret Pep Total Protein Albumin Globulin Procalcitonin 3.04 H Urine Color Yellow Urine Appearance Hazy A Urine pH 6.0 Ur Specific [place] 1.014 Urine Protein 100 A Urine Glucose (UA) Negative Urine Ketones Negative Urine Occult Blood >=1.0 A Urine Nitrate Negative Urine Bilirubin Negative Urine Urobilinogen Negative Ur Leukocyte Esterase 250 A Urine RBC 151 H Urine WBC > 182 H Ur Squamous Epith Cells 0 Urine Bacteria None Urine Mucus Few A Ur Culture Indicated? yes POC Troponin I A/P Time Spent With Patient Time: Total time spent is greater than 50% in coordination of care (as documented) at patient's floor/unit and/or counseling patient: QUALITY Stroke Symptom Onset Unknown: No VTE Deep Vein Thrombosis/Pulmonary Embolism Present on Admission: No
[2023-02-28 07:17] LABS: Basophils # (Auto) 0 K/mcL (0.00-0.30); Basophils % (Auto) 0 % (0.0-2.0); Eosinophils # (Auto) 0.05 K/mcL (0.00-0.70); Eosinophils % (Auto) 0.4 % (0.0-7.0); Hematocrit 40.6 % (40.1-51.0); Hemoglobin 13.4 g/dL (13.7-17.5); Lymphocytes # (Auto) 0.68 K/mcL (1.50-4.80); Lymphocytes % (Auto) 5.5 % (15.5-49.0); Mean Cell Volume 94.4 fL (80.0-100.0); Mean Platelet Volume 11.5 fL (8.8-12.5); Monocytes # (Auto) 1.04 K/mcL (0.10-0.90); Monocytes % (Auto) 8.4 % (1.0-12.0); Neutrophils % (Auto) 85.3 % (38.0-78.0); Platelet Count 152 K/mcL (140-440); Red Cell Distribution Width 14.1 % (11.5-14.5); WBC 12.4 K/mcL (4.5-11.0)
[2023-02-28] MEDS ORDERED: LEVOTHYROXINE 75 MCG TABLET PO SCH (07:30)
[2023-02-28 07:34] LABS: Blood Urea Nitrogen 35 mg/dL (8-23); Calcium 8.3 mg/dL (8.6-10.4); Carbon Dioxide 22 mmol/L (22-30); Chloride 99 mmol/L (96-108); Glomerular Filtration Rate 32; Glucose 106 mg/dL (70-105)
[2023-02-28] MEDS ORDERED: FUROSEMIDE 40 MG/4 ML VIAL IV SCH (09:00)
[2023-02-28] MEDS ORDERED: ASPIRIN 81 MG TAB.CHEW CHEWED SCH (09:00)
[2023-02-28] MEDS ORDERED: IPRATROPIUM/ALBUTEROL 3 ML AMPUL.NEB NEB PRN (09:15)
[2023-02-28] MEDS ORDERED: hydrALAZINE 20 MG/ML VIAL IV PRN (09:16)
[2023-02-28] MEDS: DOCUSATE SODIUM 100 MG CAPSULE PO SCH ×2 (09:45→20:17)
[2023-02-28] MEDS: ENOXAPARIN 40 MG/0.4 ML SYRINGE SQ SCH (09:46)
[2023-02-28] MEDS: 0.9 % SODIUM CHLORIDE 10 ML SYRINGE IV SCH ×3 (09:46→20:18)
[2023-02-28 09:48] LABS: Free T4 (Free Thyroxine) 0.85 ng/dL (0.93-1.70); T4 (Thyroxine) 4.6 ug/dl (5.0-12.0); Thyroid Stimulating Hormone 6.43 uIU/mL (0.27-5.01)
[2023-02-28] MEDS: AMPICILLIN SODIUM/SULBACTAM NA 3 GM in 0.9 % SODIUM CHLORIDE 100 ML IV SCH ×3 (10:16→23:27)
[2023-02-28 10:22] LABS: Hemoglobin A1C 5.1 % Hgb (4.0-6.0)
[2023-02-28] MEDS ORDERED: LEVOTHYROXINE 25 MCG TABLET PO SCH (14:31)
--- NOTE | 2023-02-28 14:33 | Internal Med Progress Note ---
SUBJECTIVE Subjective Patient information: Note initiated : 02/28/23 at 2:22 pm Service Date, if different from initiated Date: [] Patient: Jessica Casarez 72 y/o M admitted on 02/28/23 for sob. Chief Complaint: [] Interval history: History of present illness: Mr. Casarez is a 72 year old male with history of BPH with obstructive symptoms, urethral stricture, recurrent UTIs, CHF, COPD, obstructive sleep apnea CPAP not tolerated, hypertension, CKD, hypothyroidism GERD, low back pain presented with urinary hesitancy, increased frequency, dysuria and complains of urinary retention. Patient is being followed by Dr. Kruger from urology and has been on Bactrim since middle of January for UTI prophylaxis. He is due to see urology next week for cystoscopy and further evaluation however starting 2 days ago he noticed that he was having increased dysuria, he was able to pass only small amount of urine feeling that he was not able to empty out his bladder whenever he tried. Yesterday he was unable to urinate at all and presented to ED. Patient has history of CHF, his family noted that he was a bit more short of breath for past couple days they thought he was more congested than normal. Patient himself denies any shortness of breath, lower extremity edema or cough. His washing machine repairer took him off Lasix about 2 years ago and placed him on spironolactone and candesartan. Patient denies any fever or chills, reports occasional sputum production. On presentation patient was hypoxic with sats decreased to 88%, he was put on 2 L nasal cannula oxygen. Patient states she does not use oxygen at home but uses CPAP/BiPAP at night. Lab revealed a elevated white blood cell count of 19.2 with an associated left shift. His lactate was 1.9 but his procalcitonin was 3.04. UA with positive leukocyte esterase, positive RBCs, positive WBC with culture pending. BUN and creatinine elevated at 31 and 1.9 respectively. Sodium low at 132 and potassium elevated at 5.4. AST was 53 ALT was 110 and alk phos was 172 all slightly elevated. BNP elevated 830. Chest x-ray showed atelectasis at right lung base, no evidence of pulmonary congestion. No evidence of CHF. EKG showed sinus rhythm ventricular rate 75 with right bundle branch morphology, no acute changes when compared to previous EKG. Troponin negative at 0.02. Patient was given Lasix in ED for suspected CHF. 03/01 Review of Systems: denies headache/fever/chills/nausea/vomiting/chest or abdominal pain/cough/dyspnea/diarrhea. Otherwise see above. PHYSICAL EXAM General: Alert, Awake, No acute Distress, obese Eyes/N/T: EOMI, no scleral icterus, Head/Neck: neck supple, full ROM, normocephalic atraumatic CV: RRR, No murmurs, Pulm: Present mild end expiratory wheeze, on supplemental oxygen, no tachypnea or respiratory distress Abd: soft, nontender, +BS x4 Ext: no clubbing/cyanosis/edema, nontender Neuro: Alert, no focal deficits, moves all extremities, , sensations intact b/l upper/lower Psychiatric: Skin: warm/dry, normal color Constitutional Vitals: Vital Signs Temp Pulse Resp BP Pulse Ox O2 Del Method O2 Flow Rate 98.1 F 64 16 98/58 94 Nasal Cannula 1.5 02/28/23 11:30 02/28/23 11:30 02/28/23 11:30 02/28/23 11:30 02/28/23 11:30 02/28/23 11:30 02/28/23 11:30 Period Temp Pulse Resp BP Sys/Campbell Pulse Ox O2 Del Method O2 Flow Rate Last 24 Hr 97.5 F-98.4 F 62-94 14-32 93-116/51-93 88-96 Nasal Cannula- Room Air 1.5-4.5 Intake and Output 02/28/23 02/28/23 02/28/23 03:59 11:59 19:59 Intake Total 50 100 840 Output Total 1000 1100 Balance -950 -1000 840 Weight 99.337 kg Intake & Output: Intake & Output 02/28/23 02/28/23 02/28/23 03:59 11:59 19:59 Intake Total 50 100 840 Output Total 1000 1100 Balance -950 -1000 840 Weight 99.337 kg Intake: IV 50 100 Unasyn 3 gm In Sodium Chloride 100 0.9% 100 ml @ 200 mls/hr IV Q6H [facility] Rx#:[id number] Rocephin 2 gm In Dextrose 5% in 50 Water 50 ml @ 100 mls/hr IV ONCE ONE Rx#:[id number] Oral 240 GI Tube Flush 600 Output: Urine Catheter Amount 1000 1100 Other: Meal Lunch Percent of Meal Consumed 100% Feeding Ability Independent Urine Appearance Clear Uretheral ([place]) Clear Clear Urine Color Dark Yellow Uretheral (Choi) Yellow Yellow Pale Urine Odor Normal Uretheral ([place]i) Normal OBJ DATA Labs 02/28/23 05:09 02/28/23 05:09 Labs: Abnormal Lab Results 02/28/23 02/28/23 02/28/23 05:09 05:09 05:09 WBC 12.4 H RBC 4.30 L Hgb 13.4 L Neut % (Auto) 85.3 H Lymph % (Auto) 5.5 L Lymph # (Auto) 0.68 L [place] # (Auto) 1.04 H Immature Gran # Absolute Neutrophils 10.61 H POC VBG pH POC VBG pCO2 at Temp POC VBG HCO3 POC VBG Total CO2 POC Venous O2 Sat POC VBG Base Excess POC Sodium Sodium 132 L POC Potassium POC Total CO2 POC BUN BUN 35 H Creatinine 2.0 H POC Creatinine Glucose 106 H POC Glucose Calcium 8.3 L POC WB Ioniz Calcium Direct Bilirubin AST ALT Alkaline Phosphatase NT-Pro-B Natriuret Pep Procalcitonin TSH 6.43 H Free T4 0.85 L Thyroxine (T4) 4.6 L Urine Appearance Urine Protein Urine Occult Blood Ur Leukocyte Esterase Urine RBC Urine WBC Urine Mucus 02/27/23 02/27/23 02/27/23 20:57 20:57 20:56 WBC RBC Hgb Neut % (Auto) Lymph % (Auto) Lymph # (Auto) [place] # (Auto) Immature Gran # Absolute Neutrophils POC VBG pH 7.44 H POC VBG pCO2 at Temp 30.2 L POC VBG HCO3 20.5 L POC VBG Total CO2 21.0 L POC Venous O2 Sat 77.0 H POC VBG Base Excess -4.0 L POC Sodium 132 L Sodium POC Potassium 5.4 H POC Total CO2 20.0 L POC BUN 31 H BUN Creatinine POC Creatinine 1.9 H Glucose POC Glucose 118 H Calcium POC WB Ioniz Calcium 1.09 L Direct Bilirubin 0.3 H AST 53 H ALT 110 H Alkaline Phosphatase 172 H NT-Pro-B Natriuret Pep 830.9 H Procalcitonin TSH Free T4 Thyroxine (T4) Urine Appearance Urine Protein Urine Occult Blood Ur Leukocyte Esterase Urine RBC Urine WBC Urine Mucus 02/27/23 02/27/23 02/27/23 20:56 20:55 20:46 WBC 19.2 H RBC Hgb Neut % (Auto) 90.2 H Lymph % (Auto) 2.6 L Lymph # (Auto) 0.50 L [place] # (Auto) 1.24 H Immature Gran # 0.09 H Absolute Neutrophils 17.33 H POC VBG pH POC VBG pCO2 at Temp POC VBG HCO3 POC VBG Total CO2 POC Venous O2 Sat POC VBG Base Excess POC Sodium Sodium POC Potassium POC Total CO2 POC BUN BUN Creatinine POC Creatinine Glucose POC Glucose Calcium POC WB Ioniz Calcium Direct Bilirubin AST ALT Alkaline Phosphatase NT-Pro-B Natriuret Pep Procalcitonin 3.04 H TSH Free T4 Thyroxine (T4) Urine Appearance Hazy A Urine Protein 100 A Urine Occult Blood >=1.0 A Ur Leukocyte Esterase 250 A Urine RBC 151 H Urine WBC > 182 H Urine Mucus Few A Meds: Medications Acetaminophen (Acetaminophen 325 Mg Tablet) 650 mg PO Q6HP PRN; Protocol PRN Reason: Per Pain Protocol Albuterol/Ipratropium (Ipratropium/Albuterol 3 Ml Ampul.Neb) 3 ml NEB Q6HP PRN PRN Reason: Shortness Of Breath Aspirin (Aspirin 325 Mg Enteric Coated Tablet) 325 mg PO DAILY [facility] Cyclobenzaprine HCl (Cyclobenzaprine 10 Mg Tablet) 5 mg PO BIDP PRN PRN Reason: Muscle Spasm Docusate Sodium (Docusate Sodium 100 Mg Capsule) 100 mg PO BID [facility] Last Admin: 02/28/23 09:45 Dose: 100 mg Enoxaparin Sodium (Enoxaparin 40 Mg/0.4 Ml Syringe) 40 mg SQ DAILY [facility] Last Admin: 02/28/23 09:46 Dose: 40 mg Hydralazine HCl (Hydralazine 20 Mg/Ml Vial) 10 mg IV Q4-6HP PRN PRN Reason: Hypertension Ampicillin Sodium/Sulbactam (Sodium 3 gm/ Sodium Chloride) 100 mls @ 200 mls/hr IV Q6H [facility] Last Infusion: 02/28/23 10:55 Dose: Infused Levothyroxine Sodium (Levothyroxine 75 Mcg Tablet) 75 mcg PO QAMAC [facility] Last Admin: 02/28/23 09:46 Dose: 75 mcg Ondansetron HCl (Ondansetron 4 Mg/2 Ml Vial) 4 mg IV Q6HP PRN PRN Reason: Nausea And Vomiting Pregabalin (Pregabalin 150 Mg Capsule) 150 mg PO BID [facility] Sodium Chloride (0.9 % Sodium Chloride 10 Ml Syringe) 10 ml IV Q8 [facility] Last Admin: 02/28/23 13:24 Dose: 10 ml Tamsulosin HCl (Tamsulosin 0.4 Mg Capsule) 0.4 mg PO QDAY [facility] A/P Narrative A/P Narrative: Assessment and plan *UTI: -Discontinue ceftriaxone -Previous multiple UC grew Enterococcus faecium, per sensitivity start patient on IV Unasyn 3g q6h -Follow urine culture *Sepsis: 2/2 above - *BPH w/obstructive symptoms: continue tamsulosin. Status post Choi catheter *Acute urinary retention: 2/2 above, Choi catheter in place *Hyperkalemia: Spironolactone on hold *Hyponatremia: 132 on admission. Monitor *h/o CHF: -chest x-ray without significant vascular congestion. No peripheral edema. -Patient does not appear to be in decompensated heart failure -hold further diuresis with Lasix. Hold home spironolactone and candesartan -Echocardiogram pending *Mild COPD exacerbation: DuoNebs 4 times daily, pulmonary toileting *Obstructive sleep apnea: BiPAP/CPAP overnight and during naps, order placed *Obese: bmi 31 *Diabetes mellitus 2: -Obtain A1c -Not on any diet diabetic medication at home *Hypertension: blood pressure is rather soft, hold candesartan. As needed hydralazine *WILIAN on CKD stage II-III: -baseline creatinine appears to be around 1.1 -Hold nephrotoxic's including meloxicam, candesartan and spironolactone *Hypothyroidism: high tsh and low t4, increase levothyroxine to 100mcg, recommend f/u labs in 4-6 weeks *Low back pain, on Lyrica, Flexeril, methocarbamol, meloxicam *DVT prophylaxis with SCDs Full code Time Spent With Patient Time: Total time spent is greater than 50% in coordination of care (as documented) at patient's floor/unit and/or counseling patient: QUALITY Stroke Symptom Onset Unknown: No VTE Deep Vein Thrombosis/Pulmonary Embolism Present on Admission: No
[2023-02-28] MEDS: PREGABALIN 150 MG CAPSULE PO SCH (20:17)
[2023-02-28] MEDS ORDERED: SENNOSIDES 1 TABLET PO SCH (21:00)
[2023-02-28] MEDS ORDERED: PREGABALIN 150 MG CAPSULE PO SCH ×2 (21:00)
[2023-03-01] MEDS: AMPICILLIN SODIUM/SULBACTAM NA 3 GM in 0.9 % SODIUM CHLORIDE 100 ML IV SCH ×3 (05:51→18:05)
[2023-03-01] MEDS: 0.9 % SODIUM CHLORIDE 10 ML SYRINGE IV SCH ×3 (05:52→21:12)
[2023-03-01 06:49] LABS: Basophils # (Auto) 0 K/mcL (0.00-0.30); Basophils % (Auto) 0 % (0.0-2.0); Eosinophils # (Auto) 0.39 K/mcL (0.00-0.70); Eosinophils % (Auto) 7.6 % (0.0-7.0); Hematocrit 41.3 % (40.1-51.0); Hemoglobin 13.7 g/dL (13.7-17.5); Lymphocytes # (Auto) 0.73 K/mcL (1.50-4.80); Lymphocytes % (Auto) 14.2 % (15.5-49.0); Mean Cell Volume 93.7 fL (80.0-100.0); Mean Corpuscular HGB Conc 33.2 g/dL (31.0-36.0); Mean Platelet Volume 11.3 fL (8.8-12.5); Monocytes # (Auto) 0.65 K/mcL (0.10-0.90); Monocytes % (Auto) 12.6 % (1.0-12.0); Neutrophils % (Auto) 65.4 % (38.0-78.0); Platelet Count 152 K/mcL (140-440); RBC 4.41 M/mcL (4.63-6.08); Red Cell Distribution Width 13.8 % (11.5-14.5); WBC 5.2 K/mcL (4.5-11.0)
[2023-03-01] MEDS: LEVOTHYROXINE 100 MCG TABLET PO SCH (07:33)
[2023-03-01 07:34] LABS: ALT/SGPT 66 U/L (<40); AST/SGOT 27 U/L (<40); Albumin 3.5 gm/dL (3.2-5.2); Albumin/Globulin Ratio 1.1 (1.0-2.3); Alkaline Phosphatase 158 U/L (39-117); Bilirubin,Direct 0.2 mg/dL (<0.3); Bilirubin,Total 0.6 mg/dL (0.1-1.0); Blood Urea Nitrogen 36 mg/dL (8-23); Calcium 8.8 mg/dL (8.6-10.4); Carbon Dioxide 22 mmol/L (22-30); Chloride 102 mmol/L (96-108); Globulin 3.1 gm/dL (2.2-3.7); Glomerular Filtration Rate 45; Glucose 93 mg/dL (70-105); Lactate Dehydrogenase 182 U/L (135-225); Phosphorous 2.2 mg/dL (2.5-4.5); Triglycerides 143 mg/dL (<150); Uric Acid 7.7 mg/dL (2.5-8.0)
--- NOTE | 2023-03-01 08:07 | EKG ---
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 Measurements Intervals [place] Rate: 75 P: 19 NH: 194 QRS: -43 QRSD: 136 T: 6 QT: 378 QTc: 424 Interpretive Statements Sinus rhythm RBBB and LAFB Electronically Signed On 03-01-2023 8:07:23 PDT by Jasson Gutierres M.D. /store/[email or web address]/[id number]
--- NOTE | 2023-03-01 08:28 | Internal Med Progress Note ---
SUBJECTIVE Subjective Patient information: Note initiated : 03/01/23 at 8:24 am Service Date, if different from initiated Date: [] Patient: Jessica Casarez 72 y/o M admitted on 02/28/23 for sob. Chief Complaint: [] Interval history: History of present illness: Mr. Casarez is a 72 year old male with history of BPH with obstructive symptoms, urethral stricture, recurrent UTIs, CHF, COPD, obstructive sleep apnea CPAP not tolerated, hypertension, CKD, hypothyroidism GERD, low back pain presented with urinary hesitancy, increased frequency, dysuria and complains of urinary retention. Patient is being followed by Dr. Kruger from urology and has been on Bactrim since middle of January for UTI prophylaxis. He is due to see urology next week for cystoscopy and further evaluation however starting 2 days ago he noticed that he was having increased dysuria, he was able to pass only small amount of urine feeling that he was not able to empty out his bladder whenever he tried. Yesterday he was unable to urinate at all and presented to ED. Patient has history of CHF, his family noted that he was a bit more short of breath for past couple days they thought he was more congested than normal. Patient himself denies any shortness of breath, lower extremity edema or cough. His senior compensation analyst took him off Lasix about 2 years ago and placed him on spironolactone and candesartan. Patient denies any fever or chills, reports occasional sputum production. On presentation patient was hypoxic with sats decreased to 88%, he was put on 2 L nasal cannula oxygen. Patient states she does not use oxygen at home but uses CPAP/BiPAP at night. Lab revealed a elevated white blood cell count of 19.2 with an associated left shift. His lactate was 1.9 but his procalcitonin was 3.04. UA with positive leukocyte esterase, positive RBCs, positive WBC with culture pending. BUN and creatinine elevated at 31 and 1.9 respectively. Sodium low at 132 and potassium elevated at 5.4. AST was 53 ALT was 110 and alk phos was 172 all slightly elevated. BNP elevated 830. Chest x-ray showed atelectasis at right lung base, no evidence of pulmonary congestion. No evidence of CHF. EKG showed sinus rhythm ventricular rate 75 with right bundle branch morphology, no acute changes when compared to previous EKG. Troponin negative at 0.02. Patient was given Lasix in ED for suspected CHF. 03/01 Patient states brought severely poor sleep last night but that is normal for him. Urine culture pending. echo pending. Leukocytosis resolved. Renal function improving. TSH mildly elevated and T4 mildly low, increase home thyroid medication Review of Systems: denies headache/fever/chills/nausea/vomiting/chest or abdominal pain/cough/dyspnea/diarrhea. Otherwise see above. PHYSICAL EXAM General: Alert, Awake, No acute Distress, obese Eyes/N/T: EOMI, no scleral icterus, Head/Neck: neck supple, full ROM, normocephalic atraumatic CV: irreg, No murmurs, Pulm: clear b/l, no wheezing/rales, no respiratory distress Abd: soft, nontender, +BS x4 Ext: no clubbing/cyanosis/edema, nontender Neuro: Alert, no focal deficits, moves all extremities, , sensations intact b/l upper/lower Psychiatric: Skin: warm/dry, normal color Constitutional Vitals: Vital Signs Temp Pulse Resp BP Pulse Ox O2 Del Method O2 Flow Rate 98.4 F 58 L 16 116/73 95 Room Air 1.5 03/01/23 07:51 03/01/23 07:51 03/01/23 07:51 03/01/23 07:51 03/01/23 07:52 03/01/23 07:52 02/28/23 11:30 Period Temp Pulse Resp BP Sys/Campbell Pulse Ox O2 Del Method O2 Flow Rate Last 24 Hr 98.1 F-98.6 F 58-64 16-20 98-123/58-79 93-96 Nasal Cannula- Room Air 1.5-2.5 Intake and Output 02/28/23 03/01/23 03/01/23 19:59 03:59 11:59 Intake Total 940 150 100 Output Total 450 1675 700 Balance 490 -1525 -600 Weight 99.246 kg Intake & Output: Intake & Output 02/28/23 03/01/23 03/01/23 19:59 03:59 11:59 Intake Total 940 150 100 Output Total 450 1675 700 Balance 490 -1525 -600 Weight 99.246 kg Intake: IV 100 100 100 Unasyn 3 gm In Sodium Chloride 100 100 100 0.9% 100 ml @ 200 mls/hr IV Q6H [facility] Rx#:[id number] Oral 240 50 GI Tube Flush 600 Output: Urine Catheter Amount 450 3610 700 Other: Meal Lunch Percent of Meal Consumed 100% Feeding Ability Independent Urine Appearance Clear Clear Clear Uretheral (Choi) Clear Urine Color Bright Yellow Yellow Yellow Uretheral ([place]i) Dark Yellow Urine Odor Normal Normal OBJ DATA Labs 03/01/23 05:22 03/01/23 05:22 Labs: Abnormal Lab Results 03/01/23 03/01/23 03/01/23 05:22 05:22 05:22 WBC RBC 4.41 L Hgb Neut % (Auto) Lymph % (Auto) 14.2 L [place] % (Auto) 12.6 H Eos % (Auto) 7.6 H Lymph # (Auto) 0.73 L [place] # (Auto) Immature Gran # Absolute Neutrophils POC VBG pH POC VBG pCO2 at Temp POC VBG HCO3 POC VBG Total CO2 POC Venous O2 Sat POC VBG Base Excess POC Sodium Sodium POC Potassium POC Total CO2 POC BUN BUN 36 H Creatinine 1.5 H POC Creatinine Glucose POC Glucose Calcium POC WB Ioniz Calcium Phosphorus 2.2 L Direct Bilirubin GGT 210 H AST ALT 66 H Alkaline Phosphatase 158 H NT-Pro-B Natriuret Pep Procalcitonin 1.70 H TSH Free T4 Thyroxine (T4) Urine Appearance Urine Protein Urine Occult Blood Ur Leukocyte Esterase Urine RBC Urine WBC Urine Mucus 02/28/23 02/28/23 02/28/23 05:09 05:09 05:09 WBC 12.4 H RBC 4.30 L Hgb 13.4 L Neut % (Auto) 85.3 H Lymph % (Auto) 5.5 L [place] % (Auto) Eos % (Auto) Lymph # (Auto) 0.68 L [place] # (Auto) 1.04 H Immature Gran # Absolute Neutrophils 10.61 H POC VBG pH POC VBG pCO2 at Temp POC VBG HCO3 POC VBG Total CO2 POC Venous O2 Sat POC VBG Base Excess POC Sodium Sodium 132 L POC Potassium POC Total CO2 POC BUN BUN 35 H Creatinine 2.0 H POC Creatinine Glucose 106 H POC Glucose Calcium 8.3 L POC WB Ioniz Calcium Phosphorus Direct Bilirubin GGT AST ALT Alkaline Phosphatase NT-Pro-B Natriuret Pep Procalcitonin TSH 6.43 H Free T4 0.85 L Thyroxine (T4) 4.6 L Urine Appearance Urine Protein Urine Occult Blood Ur Leukocyte Esterase Urine RBC Urine WBC Urine Mucus 02/27/23 02/27/23 02/27/23 20:57 20:57 20:56 WBC RBC Hgb Neut % (Auto) Lymph % (Auto) [place] % (Auto) Eos % (Auto) Lymph # (Auto) [place] # (Auto) Immature Gran # Absolute Neutrophils POC VBG pH 7.44 H POC VBG pCO2 at Temp 30.2 L POC VBG HCO3 20.5 L POC VBG Total CO2 21.0 L POC Venous O2 Sat 77.0 H POC VBG Base Excess -4.0 L POC Sodium 132 L Sodium POC Potassium 5.4 H POC Total CO2 20.0 L POC BUN 31 H BUN Creatinine POC Creatinine 1.9 H Glucose POC Glucose 118 H Calcium POC WB Ioniz Calcium 1.09 L Phosphorus Direct Bilirubin 0.3 H GGT AST 53 H ALT 110 H Alkaline Phosphatase 172 H NT-Pro-B Natriuret Pep 830.9 H Procalcitonin TSH Free T4 Thyroxine (T4) Urine Appearance Urine Protein Urine Occult Blood Ur Leukocyte Esterase Urine RBC Urine WBC Urine Mucus 02/27/23 02/27/23 02/27/23 20:56 20:55 20:46 WBC 19.2 H RBC Hgb Neut % (Auto) 90.2 H Lymph % (Auto) 2.6 L [place] % (Auto) Eos % (Auto) Lymph # (Auto) 0.50 L [place] # (Auto) 1.24 H Immature Gran # 0.09 H Absolute Neutrophils 17.33 H POC VBG pH POC VBG pCO2 at Temp POC VBG HCO3 POC VBG Total CO2 POC Venous O2 Sat POC VBG Base Excess POC Sodium Sodium POC Potassium POC Total CO2 POC BUN BUN Creatinine POC Creatinine Glucose POC Glucose Calcium POC WB Ioniz Calcium Phosphorus Direct Bilirubin GGT AST ALT Alkaline Phosphatase NT-Pro-B Natriuret Pep Procalcitonin 3.04 H TSH Free T4 Thyroxine (T4) Urine Appearance Hazy A Urine Protein 100 A Urine Occult Blood >=1.0 A Ur Leukocyte Esterase 250 A Urine RBC 151 H Urine WBC > 182 H Urine Mucus Few A Meds: Medications Acetaminophen (Acetaminophen 325 Mg Tablet) 650 mg PO Q6HP PRN; Protocol PRN Reason: Per Pain Protocol Albuterol/Ipratropium (Ipratropium/Albuterol 3 Ml Ampul.Neb) 3 ml NEB Q6HP PRN PRN Reason: Shortness Of Breath Aspirin (Aspirin 325 Mg Enteric Coated Tablet) 325 mg PO DAILY [facility] Cyclobenzaprine HCl (Cyclobenzaprine 10 Mg Tablet) 5 mg PO BIDP PRN PRN Reason: Muscle Spasm Docusate Sodium (Docusate Sodium 100 Mg Capsule) 100 mg PO BID [facility] Last Admin: 02/28/23 20:17 Dose: 100 mg Enoxaparin Sodium (Enoxaparin 40 Mg/0.4 Ml Syringe) 40 mg SQ DAILY [facility] Last Admin: 02/28/23 09:46 Dose: 40 mg Hydralazine HCl (Hydralazine 20 Mg/Ml Vial) 10 mg IV Q4-6HP PRN PRN Reason: Hypertension Ampicillin Sodium/Sulbactam (Sodium 3 gm/ Sodium Chloride) 100 mls @ 200 mls/hr IV Q6H [facility] Last Infusion: 03/01/23 06:35 Dose: Infused Levothyroxine Sodium (Levothyroxine 100 Mcg Tablet) 100 mcg PO QAMAC [facility] Last Admin: 03/01/23 07:33 Dose: 100 mcg Ondansetron HCl (Ondansetron 4 Mg/2 Ml Vial) 4 mg IV Q6HP PRN PRN Reason: Nausea And Vomiting Pregabalin (Pregabalin 150 Mg Capsule) 150 mg PO BID [facility] Last Admin: 02/28/23 20:17 Dose: 150 mg Sodium Chloride (0.9 % Sodium Chloride 10 Ml Syringe) 10 ml IV Q8 [facility] Last Admin: 03/01/23 05:52 Dose: 10 ml Tamsulosin HCl (Tamsulosin 0.4 Mg Capsule) 0.4 mg PO QDAY [facility] A/P Narrative A/P Narrative: Assessment and plan *UTI( ): -Discontinue ceftriaxone -Previous multiple UC grew Enterococcus faecium, per sensitivity start patient on IV Unasyn 3g q6h -Follow urine culture *Sepsis: 2/2 above -Leukocytosis improved *BPH w/obstructive symptoms: continue tamsulosin. Status post Choi catheter. f/u with urology *Acute urinary retention: 2/2 above, Choi catheter in place *Hyperkalemia: Spironolactone on hold *Hyponatremia/hypophosphatemia: 132 on admission. Monitor *?h/o CHF: -chest x-ray without significant vascular congestion. No peripheral edema. -Patient does not appear to be in decompensated heart failure -hold further diuresis with Lasix. Hold home spironolactone and candesartan for wilian -Echocardiogram with good EF and diastolic function, no valvular dz. *Mild COPD exacerbation(not on home O2): DuoNebs 4 times daily, pulmonary toile ting *Acute hypoxic respiratory failure: 2/2 above -now on room air *Obstructive sleep apnea: BiPAP/CPAP overnight and during naps, order placed *Obese: bmi 31 *Diabetes mellitus 2: diet controlled, Not on any diet diabetic medication at home *Hypertension: blood pressure is rather soft, hold candesartan. As needed hydralazine *WILIAN on CKD stage II-III: -baseline creatinine appears to be around 1.1 -Hold nephrotoxic's including meloxicam, candesartan and spironolactone -improving *Hypothyroidism: high tsh and low t4, increase levothyroxine to 100mcg, recommend f/u labs in 4-6 weeks *Low back pain, on Lyrica, Flexeril, methocarbamol, meloxicam *DVT prophylaxis: lovenox Full code Time Spent With Patient Time: Total time spent is greater than 50% in coordination of care (as documented) at patient's floor/unit and/or counseling patient: Subsequent: Total time with patient: 50 - 65 Minutes QUALITY Stroke Symptom Onset Unknown: No VTE Deep Vein Thrombosis/Pulmonary Embolism Present on Admission: No
[2023-03-01] MEDS: ENOXAPARIN 40 MG/0.4 ML SYRINGE SQ SCH (08:54)
[2023-03-01] MEDS: ASPIRIN 325 MG ENTERIC COATED TABLET PO SCH (08:55)
[2023-03-01] MEDS: DOCUSATE SODIUM 100 MG CAPSULE PO SCH ×2 (08:55→21:11)
[2023-03-01] MEDS: PREGABALIN 150 MG CAPSULE PO SCH (08:55)
[2023-03-01] MEDS: TAMSULOSIN 0.4 MG CAPSULE PO SCH (08:55)
[2023-03-01] MEDS ORDERED: POLYETHYLENE GLYCOL 3350 17 GM PACKET PO PRN ×2 (10:06→15:00)
[2023-03-01] MEDS: POLYETHYLENE GLYCOL 3350 17 GM PACKET PO SCH (10:27)
--- NOTE | 2023-03-01 11:10 | Discharge Summary ---
Discharge Provider Provider IMPORTANT FOLLOW-UP INFORMATION FOR PCP: -Levothyroxind increased from 75mg to 100mcg, recommend f/u labs in 4-6 weeks. Patient information: Note initiated : 03/01/23 at 11:06 am Service Date, if different from initiated Date: [] Patient: Jessica Casarez 72 y/o M admitted on 02/28/23 for sob. Chief Complaint: [] Date of admission: 02/28/23 00:10 Discharge date: 03/02/23 Primary care physician: Jasson Chavez DO Consults: 02/27/23 Consult to Physician [CONS] Stat Comment: Consulting Provider: Jony Aldridge Reason For Exam: Physician to Consult COURSE Hospital Course Hospital course: History of present illness: Mr. Casarez is a 72 year old male with history of BPH with obstructive symptoms, urethral stricture, recurrent UTIs, CHF, COPD, obstructive sleep apnea CPAP not tolerated, hypertension, CKD, hypothyroidism GERD, low back pain presented with urinary hesitancy, increased frequency, dysuria and complains of urinary retention. Patient is being followed by Dr. Kruger from urology and has been on Bactrim since middle of January for UTI prophylaxis. He is due to see urology next week for cystoscopy and further evaluation however starting 2 days ago he noticed that he was having increased dysuria, he was able to pass only small amount of urine feeling that he was not able to empty out his bladder whenever he tried. Yesterday he was unable to urinate at all and presented to ED. Patient has history of CHF, his family noted that he was a bit more short of breath for past couple days they thought he was more congested than normal. Patient himself denies any shortness of breath, lower extremity edema or cough. His internet ecommerce specialist took him off Lasix about 2 years ago and placed him on spironolactone and candesartan. Patient denies any fever or chills, reports occasional sputum production. On presentation patient was hypoxic with sats decreased to 88%, he was put on 2 L nasal cannula oxygen. Patient states she does not use oxygen at home but uses CPAP/BiPAP at night. Lab revealed a elevated white blood cell count of 19.2 with an associated left shift. His lactate was 1.9 but his procalcitonin was 3.04. UA with positive leukocyte esterase, positive RBCs, positive WBC with culture pending. BUN and creatinine elevated at 31 and 1.9 respectively. Sodium low at 132 and potassium elevated at 5.4. AST was 53 ALT was 110 and alk phos was 172 all slightly elevated. BNP elevated 830. Chest x-ray showed atelectasis at right lung base, no evidence of pulmonary congestion. No evidence of CHF. EKG showed sinus rhythm ventricular rate 75 with right bundle branch morphology, no acute changes when compared to previous EKG. Troponin negative at 0.02. Patient was given Lasix in ED for suspected CHF. 03/01 Patient states brought severely poor sleep last night but that is normal for him. Urine culture pending. echo pending. Leukocytosis resolved. Renal function improving. TSH mildly elevated and T4 mildly low, increase home thyroid medication 03/02 No overnight or new complaints. Stable for discharge. Urine culture with no growth. Patient to maintain Krishnan and follow-up with Dr. Kruger. Assessment and plan *UTI( ): *Sepsis: 2/2 above *BPH w/obstructive symptoms: continue tamsulosin. Status post Krishnan catheter. f/u with urology *Acute urinary retention: 2/2 above, Krishnan catheter in place *Hyperkalemia: *Hyponatremia/hypophosphatemia: *h/o CHF: *Mild COPD exacerbation(not on home O2): *Acute hypoxic respiratory failure: 2/2 above, on room air *Obstructive sleep apnea: *Obese: bmi 31 *Diabetes mellitus 2: diet controlled, Not on any diet diabetic medication at home *Hypertension: *WILIAN on CKD stage II-III: *Hypothyroidism: high tsh and low t4, increase levothyroxine to 100mcg, recommend f/u labs in 4-6 weeks *Low back pain: Discharge diagnosis: UTI sepsis urinary retention electrolyte imbalance mild COPD Secondary discharge diagnosis: Acute hypoxic respite failure resolved obstructive sleep apnea history of CHF obesity diabetes hypertension acute on chronic kidney disease hypothyroidism Time Spent with Patient Time attestation: Total time spent providing and/or coordinating discharge services: Time spent: Greater than 30 minutes EXAM Constitutional Vitals: Temp Pulse Resp BP Pulse Ox O2 Del Method O2 Flow Rate 98.4 F 58 L 16 116/73 95 Room Air 1.5 03/01/23 07:51 03/01/23 07:51 03/01/23 07:51 03/01/23 07:51 03/01/23 07:52 03/01/23 07:52 02/28/23 11:30 Discharge Data Data Completed and Pending Labs on day of discharge: Labs from last 24 hours 03/01/23 03/01/23 03/01/23 05:22 05:22 05:22 WBC 5.2 RBC 4.41 L Hgb 13.7 Hct 41.3 MCV 93.7 MCH 31.1 MCHC 33.2 RDW 13.8 Plt Count 152 MPV 11.3 Immature Gran % (Auto) 0.2 Neut % (Auto) 65.4 Lymph % (Auto) 14.2 L [place] % (Auto) 12.6 H Eos % (Auto) 7.6 H Baso % (Auto) 0 Lymph # (Auto) 0.73 L [place] # (Auto) 0.65 Eos # (Auto) 0.39 Baso # (Auto) 0 Immature Gran # 0.01 Absolute Neutrophils 3.37 Sodium 135 Potassium 4.2 Chloride 102 Carbon Dioxide 22 Anion Gap 11.0 BUN 36 H Creatinine 1.5 H GFR Calculation 45 Glucose 93 Uric Acid 7.7 Calcium 8.8 Phosphorus 2.2 L Magnesium 2.2 Total Bilirubin 0.6 Direct Bilirubin 0.2 GGT 210 H AST 27 ALT 66 H Alkaline Phosphatase 158 H Lactate Dehydrogenase 182 Total Protein 6.6 Albumin 3.5 Globulin 3.1 Albumin/Globulin Ratio 1.1 Triglycerides 143 Procalcitonin 1.70 H Discharge Plan Patient/Caregiver Discharge Instructions Activity: increase activity as tolerated Diet: Cardiac Instructions: Amoxicillin/Clavulanate Potassium (By mouth), Heart Failure (DC), Urinary Tract Infection in Men (DC), Krishnan Catheter Placement and Care (DC) Activity Restrictions/Additional Instructions: Referral to see urology for urinary retention. Leave krishnan catheter in place until your previously scheduled appointment with Dr. Choudhury tomorrow. Resume home diet as tolerated. Take all meals up in chair, sitting at 90 degrees, to prevent aspiration. Increase activity as tolerated. Take all medication as directed. Your medications were electronically transmitted to [facility]. Take your insurance cards and photo ID to pickers material [employer] your medication. Return to ER for fever, chills, uncontrolled pain, inability to urinate or have a bowel movement, nausea and/or vomiting, swelling, redness, signs of infection, shortness of breath, chest pain, return of symptoms, or other acute symptom. This discharge packet is provided to you to help keep you informed about your care. We want to ensure you get everything you need when you go home. You will also be receiving a call from us in a few days to follow up with you and see how you are doing since your discharge. This gives us a chance to listen to any concerns you maybe experiencing since you were discharged or any additional needs you may have, as well as providing us feedback on your care experience. We strive to always provide excellent care and thank you for your feedback and for choosing [facility]. Prescriptions: New amoxicillin-pot clavulanate 875-125 mg tablet 1 tab PO BID Qty: 6 0RF Continued levothyroxine 75 mcg tablet 75 mcg PO QDAY Qty: 90 0RF aspirin 325 mg tablet 81 mg PO QDAY travoprost [Travatan Z] 0.004 % drops 1 drp OPHTHALMIC QPM cyclobenzaprine 5 mg tablet 5 mg PO QHS PRN (Reason: Muscle Spasm) Lyrica 150 mg capsule 300 mg PO HS Rx Instructions: takes it at noon and bedtime candesartan 16 mg tablet 16 mg PO BID tamsulosin [Flomax] 0.4 mg capsule 0.4 mg PO QDAY Qty: 30 0RF Rx Instructions: both eyes spironolactone 25 mg 25 mg PO QDAY Follow Up Plan Follow up with: Jasson Chavez DO [Primary Care Provider] - (Your Primary Care Physician will contact you to schedule a post discharge follow up. If you have not heard from them by morning, please call them at [phone] to schedule to be seen in 10-14 days. Hospitalist recommends that PCP order follow-up labs in 4-6 weeks.) Jasson Choudhury MD [Referring] - 03/03/23 3:30 pm Patient Disposition: Home, Self-Care Overall status at discharge: patient is progressing back to baseline Discharge Orders: Discharge Order (Routine); Ordered 03/02/23 Ordered By: Doug MENSAH VTE Deep Vein Thrombosis/Pulmonary Embolism Present on Admission: No
[2023-03-01] MEDS ORDERED: PREGABALIN 150 MG CAPSULE PO SCH (21:00)
[2023-03-01] MEDS ORDERED: SENNOSIDES 1 TABLET PO SCH (21:00)
[2023-03-02] MEDS: AMPICILLIN SODIUM/SULBACTAM NA 3 GM in 0.9 % SODIUM CHLORIDE 100 ML IV SCH ×2 (00:17→05:41)
[2023-03-02] MEDS: 0.9 % SODIUM CHLORIDE 10 ML SYRINGE IV SCH (05:41)
[2023-03-02] MEDS: LEVOTHYROXINE 100 MCG TABLET PO SCH (07:11)
[2023-03-02] MEDS: TAMSULOSIN 0.4 MG CAPSULE PO SCH (08:52)
[2023-03-02] MEDS: POLYETHYLENE GLYCOL 3350 17 GM PACKET PO SCH (08:52)
[2023-03-02] MEDS: ENOXAPARIN 40 MG/0.4 ML SYRINGE SQ SCH (08:52)
[2023-03-02] MEDS: ASPIRIN 325 MG ENTERIC COATED TABLET PO SCH (08:52)
[2023-03-02] MEDS: DOCUSATE SODIUM 100 MG CAPSULE PO SCH (08:52)
--- NOTE | 2023-03-02 13:51 | EKG ---
[facility] Test Date: 2023-03-01 Pat Name: Jessica Casarez Department: [facility] Room: 126 Gender: Male Facialist: : [id number] Requested By: Doug Terry Order Number: [id number] Reading MD: Radha Rossi Measurements Intervals [place] Rate: 78 P: 18 GA: 202 QRS: -39 QRSD: 148 T: -13 QT: 403 QTc: 453 Interpretive Statements Sinus rhythm with sinus arrhythmia Ventricular premature complex Right bundle branch block and left anterior fascicular block Compared to 02/27/23 no significant change Electronically Signed On 03-02-2023 13:50:39 PDT by Radha Rossi /[facility] [place]//[id number]
== END 2023-03-02 11:42 | disposition home or self-care (01) | DRG 871 ==
LOC: ED 18:42 → MEDSUR 02-28 00:10
PROVIDERS: ADMIT Internal Medicine; ATTEND Internal Medicine